=== PATIENT | male | born 1945 | race African-American/Black ===

== ENCOUNTER 2016-10-21 08:50 | Outpatient (CLI) | payer MEDICARE ==
[2016-10-21] MEDS ORDERED: Iopamidol 370 76% 100 ML VIAL ONE (10:46)
--- NOTE | 2016-10-21 13:04 | CT ---
CT THORAX WITH IV CONTRAST: Date: 10/21/16 HISTORY: History of lung cancer. Follow-up evaluation. COMPARISON: 07/07/16. FINDINGS: The previously described confluent nodular opacity within the anterior aspect of the right upper lob e has significantly decreased in size and no appreciable associated mass-like density is now present in this region and there are only linear densities present suggesting residual scarring. Just infer ior to this region, in the anterolateral aspect of the right upper lobe, there is a soft tissue dens ity present which previously measured 4.3 cm x 1.3 cm in greatest axial dimensions, and now measures approximately 3.2 cm x 1.1 cm. Just posterior to this region and also pleural based near the level of the minor fissure was a soft tissue nodule which is also no longer visualized and there is only m inimal ill-defined linear densities now present suggesting residual scarring in this region. There i s a pleural based nodular density just lateral to this region which has also resolved. There are several nodular densities within the right lower lobe, a majority of which have resolved. There has been interval decrease in size of the largest nodular soft tissue mass at the right lung b ase previously measuring 5.4 cm x 1.9 cm x 2.0 cm, and this now measures 5.4 cm x 1.6 cm x 1.0 cm. There has been interval decrease in the right hilar lymphadenopathy with the largest measured lymph node on the prior study measuring 3.5 cm x 2.7 cm on axial imaging and now measures 2.4 cm x 1.8 cm. Additional right hilar lymph nodes are also smaller in size. There is a stable calcified subcarinal lymph node. Pleural based densities along the medial aspect of the right mid lung zone at the right lung base ar e again seen and not significantly changed compared to the prior exam. There is a loculated fluid co llection seen at the right lung base measuring 3.9 cm x 2.2 cm. This was present on the prior study and previously measured 4.5 cm x 2.4 cm in axial dimensions. Pleural based densities/pleural thicken ing at the posterior and posterolateral aspect right lung base are again seen and unchanged. There is an ill-defined pulmonary nodule seen within the left upper lobe (image 23, series 3) also s een on the prior study. However, on the prior exam, this measured approximately 6.0 mm in maximal di mension. Difference in size could be related to slice selection. There is a tiny, approximately 4.0 mm, nodular density seen within the region of the lingula. This may have been present on the prior e xam. There is also a very tiny, subcentimeter, nodular density at the posterolateral left lung base measuring less than 4.0 mm, also stable when compared to the prior exam. Vascular calcifications are again seen in the coronary arteries, as well as involving the thoracic a elena. Visualized upper abdomen demonstrates multiple calcified granulomata seen throughout the liver and s pleen. Post cholecystectomy changes are again present. There is a right subclavian MediPort catheter again noted in place. No other interval change. IMPRESSION: Interval improvement in metastatic disease involving the chest as described above. POS: [facility]
== END 2016-10-21 08:51 | disposition home or self-care (01) ==
LOC: MADCT 08:50 → MERGE 08:50 → MADCT 08:51
PROVIDERS: ATTEND Internal Medicine Hematology & Oncology
DX: C34.81 Malignant neoplasm of overlapping sites of right bronchus and lung (principal); E53.9 Vitamin B deficiency, unspecified; R11.2 Nausea with vomiting, unspecified; C79.9 Secondary malignant neoplasm of unspecified site
CPT/HCPCS: 36415; 71260; 82565

== ENCOUNTER 2016-10-24 08:18 | Outpatient (CLI) | payer MEDICARE ==
[2016-10-24 10:53] LABS: ALT (SGPT) 24 U/L (8-55); AST (SGOT) 22 U/L (5-34); Albumin 3.8 g/dL (3.4-4.8); Alkaline Phosphatase 87 U/L (40-150); Bilirubin, Direct 0.2 mg/dL (0.1-0.3); Bilirubin, Total 0.3 mg/dL (0.2-1.2); Cardiac Risk 2.1 (Less than 4.5); Cholesterol 131 mg/dl (< 200 Desired); HDL Cholesterol 63 mg/dL (>60 Neg Risk); LDL Cholesterol, Calculated 54 mg/dL; Protein, Total 7.2 g/dL (5.8-8.1); Triglycerides 69 mg/dL (Less than 150)
== END 2016-10-24 08:19 | disposition home or self-care (01) ==
LOC: MADLAB 08:18
PROVIDERS: ATTEND Internal Medicine Cardiovascular Disease
DX: E78.2 Mixed hyperlipidemia (principal); E03.9 Hypothyroidism, unspecified
CPT/HCPCS: 36415; 80061; 80076

== ENCOUNTER 2016-11-16 13:36 | Emergency (ER) | payer MEDICARE ==
[2016-11-16] MEDS ORDERED: predniSONE 20 MG TAB ONE (13:57)
== END 2016-11-16 14:22 | disposition home or self-care (01) ==
LOC: MADERS 13:36
DX: L29.9 Pruritus, unspecified (principal); T45.1X5A Adverse effect of antineoplastic and immunosuppressive drugs, initial encounter; E11.9 Type 2 diabetes mellitus without complications; Z79.4 Long term (current) use of insulin; Z79.84 Long term (current) use of oral hypoglycemic drugs; Z79.899 Other long term (current) drug therapy
CPT/HCPCS: 99282; J7506

== ENCOUNTER 2017-01-20 11:58 | Outpatient (CLI) | payer MEDICARE ==
[~2017-01-20 11:58] MED LIST: Iopamidol 370 76% 100 ML VIAL ONE
--- NOTE | 2017-01-20 14:38 | CT ---
CHEST CT SCAN WITH IV CONTRAST: History: 72-year-old male with follow up lung cancer. Comparison: 10-21-16 FINDINGS: The previously noted pleural and parenchymal opacity in the posterior right lung base now measures 1 .3 x 3.3 cm in size showing decrease from the prior study. This probably represents a component of p leural thickening and loculated pleural fluid with some pleural nodularity. This combined appearance has decreased in size. Right hilar enlarged lymph node now measures 1.4 x 1.5 cm in size where it p reviously measured 1.8 x 2.4 cm. Stable linear and interstitial parenchymal changes in the right mariella g, including the right upper lobe and right lower lobe. Small stable nodular foci in both lungs are all stable. No evidence for acute pleural effusion or pericardial effusion. No evidence for new meta stasis or new adenopathy. Prominent old granuloma calcifications are noted in the liver and spleen a nd mediastinum. No evidence for liver metastasis. IMPRESSION: Decrease in the size of the right hilar lymph node. Decrease in the size of the right lower lobe pos terior inferior pleural and parenchymal process. Stable chronic linear and interstitial lung changes and stable small nodularity in both lungs. No new metastasis. POS: [facility]
== END 2017-01-20 11:59 | disposition home or self-care (01) ==
LOC: MADLAB 11:58
PROVIDERS: ATTEND Internal Medicine Hematology & Oncology
DX: C34.81 Malignant neoplasm of overlapping sites of right bronchus and lung (principal); E53.9 Vitamin B deficiency, unspecified; R11.2 Nausea with vomiting, unspecified; R91.8 Other nonspecific abnormal finding of lung field
CPT/HCPCS: 36415; 71260; 82565

== ENCOUNTER 2017-05-19 07:52 | Outpatient (CLI) | payer MEDICARE ==
[2017-05-19] MEDS ORDERED: Iopamidol 370 76% 100 ML VIAL ONE (09:24)
--- NOTE | 2017-05-19 11:35 | CT ---
CONTRAST ENHANCED CT IMAGES OF THE CHEST: Date: 05-19-17 Comparison: 01-20-17 FINDINGS: There is a right sided subclavian Mediport in place. Surgical sarah seen in the right upper hilar r egion compatible with a right upper lobectomy. There is some volume loss in the right hemithorax comp atible with post-surgical changes. Some right posterior pleural thickening is again seen. A small amount of fluid in the posterior aspec t of the right lung base appears to have decreased compared to the previous exam. Extensive splenic and hepatic granuloma again seen. The patient has had a previous cholecystectomy. A drenal glands are unremarkable. A small right hilar mass previously measuring 14 x 14 x 16 mm is again seen. This appears to have sli ghtly decreased in size, now measuring 11 x 13 x 16 mm. There are increasing mediastinal lymph nodes, two in the pretracheal region. The one on the right ant erior pretracheal region previously measured approximately 9 x 11 x 18 mm, now increasing in size abel suring 14 x 13 x 26 mm. A slightly smaller left pretracheal lymph node is also present. Previously, t his measured approximately 9 x 11 x 10 mm, now having increased in size measuring 14 x 13 x 14 mm. There is also a markedly enlarged subcarinal lymph node. Previously this measured approximately 12 x 15 x 15 mm, now having increased in size measuring 21 x 15 x 31 mm. IMPRESSION: 1. Right hilar lymph node is slightly smaller. 2. Three enlarging paratracheal and subcarinal lymph nodes, dimensions as above. POS: [facility]
== END 2017-05-19 07:53 | disposition home or self-care (01) ==
LOC: MADCT 07:52
PROVIDERS: ATTEND Internal Medicine Hematology & Oncology
DX: C34.90 Malignant neoplasm of unspecified part of unspecified bronchus or lung (principal); R59.0 Localized enlarged lymph nodes
CPT/HCPCS: 36415; 71260; 82565

== ENCOUNTER 2017-10-19 08:56 | Outpatient (CLI) | payer MEDICARE ==
[2017-10-19] MEDS ORDERED: Iopamidol 370 76% 100 ML VIAL ONE (09:33)
--- NOTE | 2017-10-19 12:14 | CT ---
CT CHEST WITH IV CONTRAST: HISTORY: Lung cancer. COMPARISON: 05/19/17. FINDINGS: Mediastinal lymphadenopathy has improved with right paratracheal lymph node measuring 8 mm and subcar inal lymph node measuring 12 mm. Right hilar lymphadenopathy is stable measuring about 12 x 13 x 15 mm. No axillary or left hilar lymphadenopathy is seen. Postop changes of right upper lobectomy are redemonstrated. There has been interval development of p atchy consolidation in the right lower lobe. Tiny right pleural effusion is stable. There is a new 8 mm parenchymal nodule in the posteromedial aspect of the left lower lobe. Right pleural calcificat ions are again seen. No pericardial left pleural effusion is identified. Calcified granulomas in the liver and spleen are again noted. The patient is post cholecystectomy. No osteolytic or osteoblastic lesions are seen. IMPRESSION: 1. Interval improvement in the mediastinal lymphadenopathy since 06/05/17. 2. Stable right hilar lymphadenopathy. 3. New right lower lobe 8 mm lung nodule. 4. Patchy consolidation in the right lower lobe. Differential diagnosis includes infection, neoplas m, or post-radiation change. POS: [facility]
== END 2017-10-19 08:57 | disposition home or self-care (01) ==
LOC: MADLAB 08:56
PROVIDERS: ATTEND Internal Medicine Hematology & Oncology
DX: C34.91 Malignant neoplasm of unspecified part of right bronchus or lung (principal); E53.9 Vitamin B deficiency, unspecified; R11.2 Nausea with vomiting, unspecified; R59.0 Localized enlarged lymph nodes; R91.1 Solitary pulmonary nodule
CPT/HCPCS: 36415; 71260; 82565

== ENCOUNTER 2017-12-16 07:35 | Outpatient (CLI) | payer MEDICARE ==
[2017-12-16 08:45] LABS: #Basophils 0.1 thou/uL (0.0-0.2); #Eosinphils 0.2 thou/uL (0.0-0.7); #Lymphocytes 1.1 thou/uL (1.20-3.40); #Monocytes 0.7 thou/uL (0.11-0.59); #Neutrophils 3.3 thou/uL (1.40-6.50); %Basophils 1.7 % (0.0-1.0); %Eosinophils 2.9 % (0.0-10.0); %Lymphocytes 19.8 % (21.0-51.0); %Monocytes 13.8 % (0.0-10.0); %Neutrophils 61.9 % (42.0-75.0); Hemoglobin 13.5 g/dL (14.0-18.0); Mean Corpuscular HGB CONC 31.4 g/dL (32.0-36.0); Mean Corpuscular Hemoglobin 26.2 pg (27.0-31.0); Mean Corpuscular Volume 83.5 fL (78.0-98.0); Mean Platelet Volume 7.9 fL (7.4-10.4); Platelet Count 207 thou/uL (130-400); RBC Distribution Width 14.2 % (11.5-14.5); Red Blood Cell (RBC) Count 5.15 mill/uL (4.70-6.10); White Blood Cell (WBC) Count 5.4 thou/uL (4.8-10.8)
[2017-12-16 08:59] LABS: ALT (SGPT) 10 U/L (8-55); AST (SGOT) 15 U/L (5-34); Albumin 4.1 g/dL (3.4-4.8); Alkaline Phosphatase 108 U/L (40-150); Anion Gap 14 mmol/L (10-20); BUN (Urea Nitrogen) 11 mg/dL (8.4-25.7); Bilirubin, Direct 0.2 mg/dL (0.1-0.3); Bilirubin, Total 0.4 mg/dL (0.2-1.2); Calc. Creatinine Clearance 0 mL/min (70-130); Calcium 9.7 mg/dL (7.8-10.44); Carbon Dioxide 26 mmol/L (23-31); Cardiac Risk 2.1 (Less than 4.5); Chloride 103 mmol/L (98-107); Cholesterol 160 mg/dl (< 200 Desired); Estimated GFR-MDRD 88; Glucose 107 mg/dL (83-110); HDL Cholesterol 78 mg/dL (>60 Neg Risk); LDL Cholesterol, Calculated 65 mg/dL; Potassium 4.2 mmol/L (3.5-5.1); Protein, Total 7.2 g/dL (5.8-8.1); Sodium 139 mmol/L (136-145); Triglycerides 84 mg/dL (Less than 150)
--- NOTE | 2017-12-16 09:43 | RAD ---
CHEST PA AND LATERAL: HISTORY: A 72-year-old male with a history of left-sided scapular pain without trauma, history of lung cancer. 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 FINDINGS: Right subclavian catheter and injection port. Volume loss on the right side with some scarring, part icularly in the right perihilar region and minimal pleural thickening, but overall stable. The left lung is somewhat hyperinflated. Heart size is normal. Biapical pleural thickening. IMPRESSION: Postoperative changes right chest with some volume loss and some scarring but overall stable. No ove rt acute process. If there is concern for bone metastasis as a source for pain, followup bone scan might give additiona l information. POS: [facility]
[2017-12-16 17:01] LABS: Hemoglobin A1c 6.7 % (4.0-6.0)
== END 2017-12-16 07:36 | disposition home or self-care (01) ==
LOC: MADLABBHPM 07:35
PROVIDERS: ATTEND Family Medicine
DX: M89.8X1 Other specified disorders of bone, shoulder (principal); E11.9 Type 2 diabetes mellitus without complications; E78.5 Hyperlipidemia, unspecified; Z98.890 Other specified postprocedural states
CPT/HCPCS: 36415; 71046; 80048; 80061; 80076; 83036; 85025

== ENCOUNTER 2018-02-19 08:17 | Outpatient (CLI) | payer MEDICARE ==
[2018-02-19] MEDS ORDERED: Iopamidol 370 76% 100 ML VIAL ONE (09:13)
--- NOTE | 2018-02-19 10:14 | CT ---
CHEST CT SCAN WITH IV CONTRAST: History: 73-year-old male with history of lung cancer. Comparison: 10-19-17 FINDINGS: Again noted is scarring and volume loss in the right upper lobe and superior segment of the right low er lobe. There is slightly more volume loss in the superior segment of the right lower lobe than when compared to the prior 10-19-17 study. Stable right hilar lymph nodes and mediastinal lymph nodes. The previously noted 0.8 cm diameter nodule in the right lower lobe has decreased in size and now measur es approximately 0.4 cm in size. Prominent splenic and liver old granuloma calcifications. Surgical c lips at the level of the GE junction. Stable left upper lobe nodular scarring. IMPRESSION: Some progressive volume loss in the superior segment of the right lower lobe. Stable right hilar and mediastinal lymph nodes and right sided volume loss. Stable nodular scarring in the left apex. No iliana dence for new metastasis. Previously noted pulmonary nodule in the right lower lobe has decreased in size. POS: [facility]
== END 2018-02-19 08:18 | disposition home or self-care (01) ==
LOC: MADLAB 08:17
PROVIDERS: ATTEND Internal Medicine Hematology & Oncology
DX: C34.81 Malignant neoplasm of overlapping sites of right bronchus and lung (principal); J98.4 Other disorders of lung; R91.1 Solitary pulmonary nodule
CPT/HCPCS: 36415; 71260; 82565

== ENCOUNTER 2018-05-22 08:49 | Emergency (ER) | payer MEDICARE ==
--- NOTE | 2018-05-22 10:05 | RAD ---
CHEST TWO VIEWS: History: Cough. Comparison: 12-16-17 FINDINGS: Right subclavian catheter and injection port. Post-surgical changes with scarring and volume loss in the right upper lobe and perihilar region. Left lung is clear. No new confluent pneumonia, overt myles a or pleural effusion. IMPRESSION: Scarring and volume loss and post-operative changes in the right perihilar and upper lobe. Stable juan earing left chest. Atherosclerosis of the aorta. No evidence for pneumonia. POS: [facility]
== END 2018-05-22 10:05 | disposition home or self-care (01) ==
LOC: MADERS 08:49
DX: J11.1 Influenza due to unidentified influenza virus with other respiratory manifestations (principal); E11.9 Type 2 diabetes mellitus without complications; E78.5 Hyperlipidemia, unspecified; I10 Essential (primary) hypertension; Z79.4 Long term (current) use of insulin; Z79.51 Long term (current) use of inhaled steroids; Z79.899 Other long term (current) drug therapy
CPT/HCPCS: 71046

== ENCOUNTER 2018-06-16 09:49 | Outpatient (CLI) | payer MEDICARE ==
[2018-06-16 10:30] LABS: Calc. Creatinine Clearance 0 mL/min (70-130); Estimated GFR-MDRD Greater than 90
--- NOTE | 2018-06-16 11:12 | CT ---
EXAM: CT Chest W Con PROVIDED CLINICAL HISTORY: Lung cancer COMPARISON: 02/19/2018 FINDINGS: The heart, pericardium and great vessels demonstrate a stable CT appearance. Postoperative and pleural parenchymal change involving the right hemithorax demonstrates no significa nt change with respect to the prior examination. Interval development of small noncalcified pulmonary nodules involving the left upper lobe. The largest of these measures about 6 mm adjacent to the richard r fissure laterally on image 15 of series 3. There is a stable noncalcified nodular density at the le ft lung apex. The airway appears unchanged. There is no evidence for pneumothorax. Emphysematous changes are again seen. The visualized portions of the upper abdomen demonstrate no acute abnormality. The osseous structures demonstrate no concerning osteoblastic or osteolytic lesions. IMPRESSION: 1. Stable postoperative and pleural parenchymal change involving the right hemithorax. 2. Development of multiple noncalcified pulmonary nodules involving the left upper lobe. Metastatic d isease should be considered. Follow up is recommended.
== END 2018-06-16 09:50 | disposition home or self-care (01) ==
LOC: MADLAB 09:49
PROVIDERS: ATTEND Internal Medicine Hematology & Oncology
DX: C34.90 Malignant neoplasm of unspecified part of unspecified bronchus or lung (principal); R91.8 Other nonspecific abnormal finding of lung field; Z98.890 Other specified postprocedural states
CPT/HCPCS: 36415; 71260; 82565; Q9967

== ENCOUNTER 2018-06-25 17:58 | Emergency (ER) | payer MEDICARE ==
[2018-06-25] MEDS ORDERED: Ondansetron PF 4 MG/2 ML Vial ONE (18:47)
[2018-06-25] MEDS ORDERED: Fentanyl 100 MCG/2 ML VIAL ONE ×2 (18:47→20:47)
[2018-06-25] MEDS ORDERED: Sodium Chloride 0.9% 1,000 ML ONE (18:48)
[2018-06-25 18:52] LABS: #Basophils 0.1 thou/uL (0.0-0.2); #Eosinphils 0.1 thou/uL (0.0-0.7); #Lymphocytes 1.2 thou/uL (1.20-3.40); #Monocytes 0.7 thou/uL (0.11-0.59); #Neutrophils 3.7 thou/uL (1.40-6.50); %Basophils 1.8 % (0.0-1.0); %Lymphocytes 21.3 % (21.0-51.0); %Monocytes 12.3 % (0.0-10.0); %Neutrophils 62.6 % (42.0-75.0); Hemoglobin 12.3 g/dL (14.0-18.0); Mean Corpuscular HGB CONC 31.3 g/dL (32.0-36.0); Mean Corpuscular Hemoglobin 26.1 pg (27.0-31.0); Mean Corpuscular Volume 83.5 fL (78.0-98.0); Platelet Count 228 thou/uL (130-400); RBC Distribution Width 15.8 % (11.5-14.5); Red Blood Cell (RBC) Count 4.69 mill/uL (4.70-6.10); White Blood Cell (WBC) Count 5.8 thou/uL (4.8-10.8)
[2018-06-25 19:07] LABS: ALT (SGPT) 8 U/L (8-55); AST (SGOT) 12 U/L (5-34); Albumin 3.9 g/dL (3.4-4.8); Alkaline Phosphatase 75 U/L (40-150); Anion Gap 16 mmol/L (10-20); BUN (Urea Nitrogen) 7 mg/dL (8.4-25.7); Bilirubin, Total 0.4 mg/dL (0.2-1.2); Calc. Creatinine Clearance 0 mL/min (70-130); Calcium 9.8 mg/dL (7.8-10.44); Carbon Dioxide 22 mmol/L (23-31); Chloride 106 mmol/L (98-107); Estimated GFR-MDRD Greater than 90; Globulin 3.1 g/dL (2.4-3.5); Glucose 159 mg/dL (83-110); Lipase 28 U/L (8-78); Potassium 4.2 mmol/L (3.5-5.1); Sodium 140 mmol/L (136-145)
--- NOTE | 2018-06-25 20:16 | CT ---
CT ABDOMEN AND PELVIS WITH IV CONTRAST 06/25/2018 CLINICAL INFORMATION: Abdominal pain and bloating COMPARISON: Noncontrast CT abdomen and pelvis on 11/25/[address] thorax on 06/16/2018. Technique: Multiple contiguous axial CT images are obtained through the abdomen and pelvis with IV contrast. Cor onal reformatted images are provided. FINDINGS: Lower Chest: Pleural and parenchymal changes are again seen at the right lung base. Left lung base is clear. Surgical clips are seen in the posterior lower mediastinum. Vessels: Vascular calcifications are seen in the abdominal aorta and iliac arteries. Abdomen: Portal vein:Patent Gallbladder: Postcholecystectomy changes are again seen Liver: Multiple calcified granulomata are identified. No focal hepatic lesion is appreciated. Pancreas: within normal limits. Spleen: Multiple calcified granulomata are again seen. Adrenals: within normal limits. Kidneys: A subcentimeter too small to characterize hypodense lesion is seen in the anterior aspect mi dportion left kidney. Kidneys otherwise have a normal CT appearance bilaterally. Peritoneum: No ascites or free air; no fluid collection. Bowel: Normal caliber.The appendix is not visualized on this examination, but no definite secondary s igns are seen to suggest appendicitis. Mesentery and Retroperitoneum: No enlarged mesenteric or retroperitoneal lymph nodes. Abdominal Wall: A fat-containing umbilical hernia is again seen. Pelvis: Reproductive Organs: No pelvic masses. Pelvis within normal limits. Bladder: within normal limits. Bones: within normal limits. IMPRESSION: No acute findings in the abdomen or pelvis.
== END 2018-06-25 21:09 | disposition home or self-care (01) ==
LOC: MADERS 17:58
DX: R10.9 Unspecified abdominal pain (principal); E11.9 Type 2 diabetes mellitus without complications; E78.5 Hyperlipidemia, unspecified; I10 Essential (primary) hypertension; Z79.899 Other long term (current) drug therapy; Z79.84 Long term (current) use of oral hypoglycemic drugs
CPT/HCPCS: 74177; 80053; 83605; 83690; 85025; 96361; 96372; 96374; 96375; 96376; J0500; J2405; J3010; J7050; Q9967

== ENCOUNTER 2018-09-13 08:22 | Outpatient (CLI) | payer MEDICARE ==
[2018-09-13 08:46] LABS: Calc. Creatinine Clearance 0 mL/min (70-130); Estimated GFR-MDRD Greater than 90
--- NOTE | 2018-09-13 11:59 | CT ---
CT CHEST WITH IV CONTRAST: Date: 09/13/18 PROVIDED CLINICAL HISTORY: Lung cancer. FINDINGS: Comparison made with study dated 06/16/18. Interval enlargement of several of the previously described pulmonary nodules involving the left uppe r lobe. The largest of these is again located at the margin of the major fissure laterally. This tony ures approximately 15 x 10 mm in greatest transverse dimensions on the current study as compared to a bout 6 mm in greatest dimension on the prior study. There is a new 3-4 mm noncalcified pulmonary nodu le involving the superior segment of the left lower lobe. Post treatment changes involving the right hemithorax appear not significantly changed with respect t o the prior study. There is no evidence for mediastinal or axillary lymph node enlargement. No eviden ce for left hilar lymph node enlargement. Soft tissue density in the region of the right hilum is sta ble. There is a stable nodular soft tissue density within the epicardial fat right of midline. This a ppears increased in size with respect to the 02/19/18 study. The airway appears unchanged. There is no evidence for left pleural fluid or pneumothorax. The visualized portions of the upper abdomen demonstrate a stable CT appearance. The osseous structures demonstrate no concerning lytic or blastic lesions. IMPRESSION: Interval enlargement of left upper lobe pulmonary nodules, the largest of which measures about 1.5 cm maximally, compatible with metastatic disease. POS: [facility]
[2018-09-13] MEDS ORDERED: Iopamidol 370 76% 100 ML VIAL ONE (13:19)
== END 2018-09-13 08:23 | disposition home or self-care (01) ==
LOC: MADLAB 08:22
PROVIDERS: ATTEND Internal Medicine Hematology & Oncology
DX: C34.81 Malignant neoplasm of overlapping sites of right bronchus and lung (principal); E53.9 Vitamin B deficiency, unspecified; R91.8 Other nonspecific abnormal finding of lung field
CPT/HCPCS: 36415; 71260; 82565; Q9967

== ENCOUNTER 2018-10-25 13:57 | Emergency (ER) | payer MEDICARE ==
[2018-10-25] MEDS ORDERED: Sodium Chloride 0.9% 1,000 ML ONE (14:26)
[2018-10-25 15:09] LABS: #Basophils 0.1 thou/uL (0.0-0.2); #Eosinphils 0.1 thou/uL (0.0-0.7); #Lymphocytes 1.6 thou/uL (1.20-3.40); #Monocytes 0.6 thou/uL (0.11-0.59); #Neutrophils 4.1 thou/uL (1.40-6.50); %Basophils 1.9 % (0.0-1.0); %Eosinophils 1.4 % (0.0-10.0); %Lymphocytes 24.4 % (21.0-51.0); %Monocytes 9.3 % (0.0-10.0); ALT (SGPT) 7 U/L (8-55); AST (SGOT) 12 U/L (5-34); Albumin 3.8 g/dL (3.4-4.8); Alkaline Phosphatase 62 U/L (40-150); Anion Gap 16 mmol/L (10-20); BUN (Urea Nitrogen) 11 mg/dL (8.4-25.7); Bilirubin, Total 0.4 mg/dL (0.2-1.2); Calc. Creatinine Clearance 0 mL/min (70-130); Calcium 9.9 mg/dL (7.8-10.44); Carbon Dioxide 22 mmol/L (23-31); Chloride 104 mmol/L (98-107); Estimated GFR-MDRD 89; Globulin 3.4 g/dL (2.4-3.5); Glucose 100 mg/dL (83-110); Hemoglobin 12.6 g/dL (14.0-18.0); Lipase 39 U/L (8-78); Mean Corpuscular HGB CONC 31.9 g/dL (32.0-36.0); Mean Corpuscular Hemoglobin 26.5 pg (27.0-31.0); Mean Corpuscular Volume 83.1 fL (78.0-98.0); Mean Platelet Volume 6.4 fL (7.4-10.4); Platelet Count 258 thou/uL (130-400); Potassium 3.9 mmol/L (3.5-5.1); Protein, Total 7.2 g/dL (5.8-8.1); Red Blood Cell (RBC) Count 4.73 mill/uL (4.70-6.10); Sodium 138 mmol/L (136-145); White Blood Cell (WBC) Count 6.5 thou/uL (4.8-10.8)
[2018-10-25] MEDS ORDERED: Fentanyl 100 MCG/2 ML VIAL ONE (16:06)
--- NOTE | 2018-10-25 16:09 | CT ---
EXAM: CT ABDOMEN AND PELVIS HISTORY: Right upper quadrant pain, x4 days COMPARISON: 06/25/2018 Procedure: Multiple contiguous axial images were obtained and a CT of the abdomen and pelvis with IV contrast. C oronal reformats were performed. FINDINGS: Lower Chest: Chronic changes in both lung bases. Vessels: Normal caliber aorta Heart: Normal heart size Abdomen: Portal vein:Patent Gallbladder: Surgically absent Liver: Extensive calcified granulomas. No enhancing masses. Pancreas: within normal limits. Spleen: Costophrenic granulomas. No enhancing masses. Adrenals: within normal limits. Kidneys: Symmetric enhancement. No obstructive uropathy. Peritoneum: No ascites or free air, no fluid collection. Bowel: Limited evaluation due to lack of IV contrast. No evidence of bowel obstruction. Appendix is d ifficult to appreciate. No obvious inflammation of the cecal apex. Scattered fecal material in a nondistended, nondilated colon. Mesentery and Retroperitoneum: No enlarged mesenteric or retroperitoneal lymph nodes. Abdominal Wall: Ventral abdominal wall hernia containing mesenteric fat. Pelvis: Reproductive Organs: No pelvic masses. Pelvis: within normal limits. Bladder: within normal limits. Bones: within normal limits. IMPRESSION: No evidence of acute intraabdominal\pelvic abnormality.
== END 2018-10-25 16:46 | disposition home or self-care (01) ==
LOC: MADERS 13:57
DX: R10.11 Right upper quadrant pain (principal); E11.9 Type 2 diabetes mellitus without complications; E78.5 Hyperlipidemia, unspecified; E78.00 Pure hypercholesterolemia, unspecified; I10 Essential (primary) hypertension; Z79.899 Other long term (current) drug therapy; Z79.51 Long term (current) use of inhaled steroids; Z79.84 Long term (current) use of oral hypoglycemic drugs
CPT/HCPCS: 74177; 80053; 83605; 83690; 84484; 85025; 93005; 94760; 96361; 96374; J3010; J7050; Q9967

== ENCOUNTER 2019-01-05 12:08 | Emergency (ER) | payer MEDICARE ==
[2019-01-05] MEDS ORDERED: Sodium Chloride 0.9% 500 ML ONE (12:34)
[2019-01-05 12:48] LABS: INR-International Normal Ratio 1.2; Prothrombin Time 15.5 SEC (12.0-14.7)
[2019-01-05 12:49] LABS: PTT 44.1 SEC (22.9-36.1)
[2019-01-05 12:56] LABS: ALT (SGPT) 15 U/L (8-55); AST (SGOT) 13 U/L (5-34); Albumin 3.5 g/dL (3.4-4.8); Alkaline Phosphatase 78 U/L (40-110); Anion Gap 17 mmol/L (10-20); BUN (Urea Nitrogen) 16 mg/dL (8.4-25.7); Bilirubin, Total 0.2 mg/dL (0.2-1.2); Calc. Creatinine Clearance 0 mL/min (70-130); Calcium 10.1 mg/dL (7.8-10.44); Carbon Dioxide 24 mmol/L (23-31); Chloride 102 mmol/L (98-107); Estimated GFR-MDRD 87; Globulin 3.9 g/dL (2.4-3.5); Glucose 187 mg/dL (83-110); Potassium 4.4 mmol/L (3.5-5.1); Protein, Total 7.4 g/dL (5.8-8.1); Sodium 139 mmol/L (136-145)
[2019-01-05 12:59] LABS: #Lymphocytes 0.7 thou/uL (1.20-3.40); #Monocytes 0.9 thou/uL (0.11-0.59); #Neutrophils 8.7 thou/uL (1.40-6.50); %Basophils 0.4 % (0.0-1.0); %Lymphocytes 6.4 % (21.0-51.0); %Monocytes 8.7 % (0.0-10.0); %Neutrophils 84.5 % (42.0-75.0); Anisocytosis SLIGHT = 6-15 cells (100X) (0-5/hpf); Hemoglobin 9.5 g/dL (14.0-18.0); MDiff Complete? YES; Mean Corpuscular HGB CONC 31.6 g/dL (32.0-36.0); Mean Corpuscular Hemoglobin 24.8 pg (27.0-31.0); Mean Corpuscular Volume 78.4 fL (78.0-98.0); Mean Platelet Volume 5.9 fL (7.4-10.4); Ovalocytes MODERATE= 6-15 cells (100X) (0-1/hpf); Platelet Count 445 thou/uL (130-400); Platelet Morphology Comment Appears Adequate; RBC Distribution Width 14.1 % (11.5-14.5); Red Blood Cell (RBC) Count 3.85 mill/uL (4.70-6.10); White Blood Cell (WBC) Count 10.3 thou/uL (4.8-10.8)
--- NOTE | 2019-01-05 13:34 | RAD ---
CHEST 1 VIEW: Date: 01/05/19 HISTORY: Lung cancer. Lower GI bleed. Chest pain. COMPARISON: 11/10/18. FINDINGS: Cardiac silhouette remains partially obscured by the elevated right hemidiaphragm. Extensive right siena ng atelectasis with spiculation at the right hilum is similar in appearance to the prior study. Left lung remains hyperinflated. No evidence of pneumothorax. Soft tissue density mass at the lateral aspe ct of the left lung apex correlates with abnormality seen on recent PET scan. IMPRESSION: Findings are stable compared to recent imaging studies. Left upper lobe mass is apparent. No new abno rmalities are demonstrated. POS: [facility]
== END 2019-01-05 14:31 | disposition short-term general hospital (02) ==
LOC: MADERS 12:08
DX: K92.2 Gastrointestinal hemorrhage, unspecified (principal); E11.9 Type 2 diabetes mellitus without complications; E78.5 Hyperlipidemia, unspecified; E78.00 Pure hypercholesterolemia, unspecified; I10 Essential (primary) hypertension; Z85.118 Personal history of other malignant neoplasm of bronchus and lung; Z79.51 Long term (current) use of inhaled steroids; Z79.84 Long term (current) use of oral hypoglycemic drugs; Z79.899 Other long term (current) drug therapy
CPT/HCPCS: 71045; 80053; 83880; 84484; 85025; 85610; 85730; 93005; 94760; 96360; J7050

== ENCOUNTER 2019-01-28 00:10 | Emergency (ER) | payer MEDICARE ==
[2019-01-28] MEDS ORDERED: Cephalexin 500 MG CAP ONE (01:06)
== END 2019-01-28 02:30 | disposition home or self-care (01) ==
LOC: MADERS 00:10
DX: N39.0 Urinary tract infection, site not specified (principal); E11.9 Type 2 diabetes mellitus without complications; E78.5 Hyperlipidemia, unspecified; E78.00 Pure hypercholesterolemia, unspecified; I10 Essential (primary) hypertension; Z87.891 Personal history of nicotine dependence
CPT/HCPCS: 51702; 87077; 87086; 87186

== ENCOUNTER 2019-01-29 10:50 | Emergency (ER) | payer MEDICARE | END 2019-01-29 11:41 | disposition home or self-care (01) | LOC: MADERS 10:50 | DX: T83.84XA Pain due to genitourinary prosthetic devices, implants and grafts, initial encounter (principal); N40.0 Benign prostatic hyperplasia without lower urinary tract symptoms; R33.8 Other retention of urine; E11.9 Type 2 diabetes mellitus without complications; E78.5 Hyperlipidemia, unspecified; E78.00 Pure hypercholesterolemia, unspecified; I10 Essential (primary) hypertension; Z87.891 Personal history of nicotine dependence; Z79.899 Other long term (current) drug therapy; Z79.51 Long term (current) use of inhaled steroids; Z79.84 Long term (current) use of oral hypoglycemic drugs | CPT/HCPCS: 99283 ==

== ENCOUNTER 2019-02-14 19:43 | Emergency (ER) | payer MEDICARE ==
[2019-02-14] MEDS ORDERED: Sodium Chloride Irrig Solution 250 ML ONE (20:23)
== END 2019-02-14 21:20 | disposition home or self-care (01) ==
LOC: MADERS 19:43
DX: K94.23 Gastrostomy malfunction (principal); E11.9 Type 2 diabetes mellitus without complications; E78.5 Hyperlipidemia, unspecified; E78.00 Pure hypercholesterolemia, unspecified; I10 Essential (primary) hypertension; Z87.891 Personal history of nicotine dependence
CPT/HCPCS: 99282

== ENCOUNTER 2019-02-26 08:40 | Emergency (ER) | payer MEDICARE ==
[2019-02-26] MEDS ORDERED: Sodium Chloride 0.9% 1,000 ML ONE (10:07)
[2019-02-26 10:26] LABS: Anisocytosis MODERATE=16-30 cells (100X) (0-5/hpf); Eosinophils 1 % (0-10); Hemoglobin 8.6 g/dL (14.0-18.0); Hypochromia SLIGHT = 6-15 cells (100X) (0-5/hpf); Lymphocytes 3 % (21-51); MDiff Complete? YES; Mean Corpuscular Hemoglobin 24.4 pg (27.0-31.0); Mean Corpuscular Volume 84.3 fL (78.0-98.0); Mean Platelet Volume 6.9 fL (7.4-10.4); Monocytes 4 % (0-10); Neutrophil 90 % (42-75); Platelet Count 524 thou/uL (130-400); Platelet Morphology Comment Appears Increased; Polychromasia SLIGHT = 2-3 cells (100X) (0-2/hpf); RBC Distribution Width 19.1 % (11.5-14.5); Reactive Lymphocytes 2 % (0-10); Red Blood Cell (RBC) Count 3.53 mill/uL (4.70-6.10); White Blood Cell (WBC) Count 8.2 thou/uL (4.8-10.8)
[2019-02-26 10:31] LABS: ALT (SGPT) 13 U/L (8-55); AST (SGOT) 18 U/L (5-34); Albumin 3.7 g/dL (3.4-4.8); Alkaline Phosphatase 83 U/L (40-110); Anion Gap 17 mmol/L (10-20); BUN (Urea Nitrogen) 17 mg/dL (8.4-25.7); Bilirubin, Total 0.5 mg/dL (0.2-1.2); Calc. Creatinine Clearance 0 mL/min (70-130); Calcium 9.3 mg/dL (7.8-10.44); Carbon Dioxide 23 mmol/L (23-31); Chloride 101 mmol/L (98-107); Estimated GFR-MDRD Greater than 90; Globulin 3.3 g/dL (2.4-3.5); Glucose 135 mg/dL (83-110); Magnesium 1.9 mg/dL (1.6-2.6); Potassium 4.7 mmol/L (3.5-5.1); Sodium 136 mmol/L (136-145)
== END 2019-02-26 11:04 | disposition home or self-care (01) ==
LOC: MADERS 08:40
DX: R33.9 Retention of urine, unspecified (principal); I95.1 Orthostatic hypotension; E86.9 Volume depletion, unspecified; D64.9 Anemia, unspecified; E11.9 Type 2 diabetes mellitus without complications; E78.5 Hyperlipidemia, unspecified; E78.00 Pure hypercholesterolemia, unspecified; I10 Essential (primary) hypertension; Z87.891 Personal history of nicotine dependence; Z46.6 Encounter for fitting and adjustment of urinary device; Z79.84 Long term (current) use of oral hypoglycemic drugs; Z79.82 Long term (current) use of aspirin; Z79.899 Other long term (current) drug therapy
CPT/HCPCS: 51702; 80053; 83735; 85025; J7050

== ENCOUNTER 2019-03-21 14:09 | Emergency (ER) | payer MEDICARE ==
[2019-03-21] MEDS ORDERED: Triple Antibiotic Oint 1 GM Packet ONE (15:32)
== END 2019-03-21 15:30 | disposition home or self-care (01) ==
LOC: MADERS 14:09
DX: K94.29 Other complications of gastrostomy (principal); E78.5 Hyperlipidemia, unspecified; E11.9 Type 2 diabetes mellitus without complications; I10 Essential (primary) hypertension; Z87.891 Personal history of nicotine dependence; Z79.84 Long term (current) use of oral hypoglycemic drugs; Z79.82 Long term (current) use of aspirin; Z79.899 Other long term (current) drug therapy
CPT/HCPCS: 99282

== ENCOUNTER 2019-03-27 10:22 | Emergency (ER) | payer MEDICARE ==
--- NOTE | 2019-03-27 12:39 | RAD ---
EXAM: XR Abdomen 1 View/KUB PROVIDED CLINICAL HISTORY: Gastrostomy tube placement COMPARISON: None FINDINGS: Contrast material administered to the patient's gastrostomy tube opacifies the stomach. The bowel gas pattern is nonspecific. Visualized lung bases appear clear. Known right hilar mass like opacity. IMPRESSION: As above.
== END 2019-03-27 12:59 | disposition home or self-care (01) ==
LOC: MADERS 10:22
DX: K94.23 Gastrostomy malfunction (principal); E11.9 Type 2 diabetes mellitus without complications; E78.5 Hyperlipidemia, unspecified; E78.00 Pure hypercholesterolemia, unspecified; I10 Essential (primary) hypertension; Z87.891 Personal history of nicotine dependence; Z79.82 Long term (current) use of aspirin; Z79.899 Other long term (current) drug therapy; Z79.84 Long term (current) use of oral hypoglycemic drugs
CPT/HCPCS: 43762; 74018; B4087

== ENCOUNTER 2019-05-09 04:23 | Inpatient (IN) | payer MEDICARE ==
[2019-05-09] MEDS ORDERED: Sodium Chloride 0.9% 1,000 ML ONE ×2 (05:07→07:21)
[2019-05-09] MEDS ORDERED: Cefepime 2 GM VIAL ONE (05:33)
[2019-05-09 05:48] LABS: ALT (SGPT) 14 U/L (8-55); AST (SGOT) 17 U/L (5-34); Albumin 3.3 g/dL (3.4-4.8); Alkaline Phosphatase 83 U/L (40-110); Anion Gap 16 mmol/L (10-20); BUN (Urea Nitrogen) 20 mg/dL (8.4-25.7); Bilirubin, Total 0.2 mg/dL (0.2-1.2); Calc. Creatinine Clearance 0 mL/min (70-130); Carbon Dioxide 27 mmol/L (23-31); Chloride 102 mmol/L (98-107); Estimated GFR-MDRD Greater than 90; Globulin 4.3 g/dL (2.4-3.5); Glucose 209 mg/dL (83-110); Potassium 4.6 mmol/L (3.5-5.1); Protein, Total 7.6 g/dL (5.8-8.1); Sodium 140 mmol/L (136-145)
[2019-05-09 05:53] LABS: Anisocytosis SLIGHT = 6-15 cells (100X) (0-5/hpf); Band 7 % (5-11); Elliptocytes SLIGHT = 2-5 cells (100X) (0-1/hpf); Eosinophils 1 % (0-10); Hemoglobin 9.2 g/dL (14.0-18.0); Hypochromia SLIGHT = 6-15 cells (100X) (0-5/hpf); Lymphocytes 10 % (21-51); MDiff Complete? YES; Mean Corpuscular HGB CONC 28.1 g/dL (32.0-36.0); Mean Corpuscular Hemoglobin 22.2 pg (27.0-31.0); Mean Platelet Volume 6.6 fL (7.4-10.4); Metamyelocyte 1 % (0-0); Monocytes 4 % (0-10); Myelocyte 1 % (0-0); Neutrophil 76 % (42-75); Platelet Clumps SLIGHT; Platelet Count 534 thou/uL (130-400); Polychromasia SLIGHT = 2-3 cells (100X) (0-2/hpf); RBC Distribution Width 17.9 % (11.5-14.5); Red Blood Cell (RBC) Count 4.05 mill/uL (4.70-6.10); White Blood Cell (WBC) Count 12.1 thou/uL (4.8-10.8)
[2019-05-09 05:59] LABS: Bilirubin Negative (Negative); Blood, Urine Trace (Negative); Clarity Clear (Clear); Glucose, Urine (Dipstick) Negative (Negative); Leukocyte Trace (Negative); Nitrite Negative (Negative); Protein, Urine (Dipstick) 30 mg/dL (Neg-Trace); Urobilinogen 0.2 mg/dL (Less than 2)
[2019-05-09 06:08] LABS: Bacteria/HPF Rare-Few HPF (None Seen); RBC/HPF 0-3 HPF (0-3); Squamous Epithelial 0-3 HPF (0-3); WBC/HPF 0-3 HPF (0-3)
[2019-05-09] MEDS ORDERED: Sodium Chloride 0.9% 100 ML BAG ONE (07:09)
--- NOTE | 2019-05-09 08:06 | RAD ---
CHEST 1 VIEW: Date: 05/09/2019 INDICATION: 74-year-old male with dyspnea. COMPARISON: Prior exam dated 04/18/2019. FINDINGS: Right chest wall port is stable appearing. Prominent pleural parenchymal opacity in the right upper l obe is similar appearing. Pulmonary nodularity of the left upper lobe is stable. No pleural effusion or pneumothorax is evident. No acute osseous abnormality is evident. IMPRESSION: Stable exam. POS: [facility]
[2019-05-09] MEDS ORDERED: Acetaminophen 325 MG TAB PER TUBE PRN (08:55)
[2019-05-09] MEDS ORDERED: Bacteriostatic Water 30 ML VIAL FS PRN (09:23)
[2019-05-09] MEDS ORDERED: methylPREDNISolone Sod Succ 40 MG VIAL IVP SCH (09:30)
[2019-05-09] MEDS ORDERED: Enoxaparin Sodium 40 MG/0.4 ML SYRINGE SC SCH (09:30)
[2019-05-09] MEDS ORDERED: Mometasone/Formoterol 200/5 60 PUFF INH SCH ×2 (09:45→19:00)
[2019-05-09] MEDS ORDERED: Enoxaparin Sodium 30 MG/0.3 ML SYRINGE SC SCH (10:45)
[2019-05-09] MEDS: methylPREDNISolone Sod Succ 40 MG VIAL IVP SCH (17:31)
[2019-05-09] MEDS: Cefepime 2 GM in Sodium Chloride 0.9% 100 ML IVPB SCH (17:37)
[2019-05-09] MEDS: Mirtazapine 15 MG TAB PER TUBE SCH (21:00)
[2019-05-09] MEDS: Mometasone/Formoterol 200/5 60 PUFF INH SCH (21:01)
[2019-05-10] MEDS: methylPREDNISolone Sod Succ 40 MG VIAL IVP SCH ×3 (01:29→17:00)
[2019-05-10 05:33] LABS: ALT (SGPT) 12 U/L (8-55); AST (SGOT) 13 U/L (5-34); Alkaline Phosphatase 72 U/L (40-110); Anion Gap 13 mmol/L (10-20); BUN (Urea Nitrogen) 20 mg/dL (8.4-25.7); Bilirubin, Total 0.2 mg/dL (0.2-1.2); Calc. Creatinine Clearance 67 mL/min (70-130); Calcium 9.8 mg/dL (7.8-10.44); Carbon Dioxide 25 mmol/L (23-31); Chloride 107 mmol/L (98-107); Estimated GFR-MDRD Greater than 90; Glucose 238 mg/dL (83-110); Potassium 4.4 mmol/L (3.5-5.1); Sodium 141 mmol/L (136-145)
[2019-05-10] MEDS: Cefepime 2 GM in Sodium Chloride 0.9% 100 ML IVPB SCH ×2 (05:40→16:59)
[2019-05-10 05:44] LABS: #Lymphocytes 0.4 thou/uL (1.20-3.40); #Monocytes 0.4 thou/uL (0.11-0.59); #Neutrophils 12.8 thou/uL (1.40-6.50); %Basophils 0.3 % (0.0-1.0); %Monocytes 2.9 % (0.0-10.0); %Neutrophils 93.8 % (42.0-75.0); Anisocytosis SLIGHT = 6-15 cells (100X) (0-5/hpf); Band 32 % (5-11); Burr Cells MODERATE= 6-15 cells (100X) (0-1/hpf); Hemoglobin 8.3 g/dL (14.0-18.0); Hypochromia MODERATE=16-30 cells (100X) (0-5/hpf); Lymphocytes 3 % (21-51); MDiff Complete? YES; Mean Corpuscular Hemoglobin 22.7 pg (27.0-31.0); Mean Corpuscular Volume 78.3 fL (78.0-98.0); Mean Platelet Volume 6.6 fL (7.4-10.4); Metamyelocyte 1 % (0-0); Monocytes 2 % (0-10); Neutrophil 62 % (42-75); Platelet Count 499 thou/uL (130-400); Polychromasia SLIGHT = 2-3 cells (100X) (0-2/hpf); Red Blood Cell (RBC) Count 3.68 mill/uL (4.70-6.10); White Blood Cell (WBC) Count 13.7 thou/uL (4.8-10.8)
--- NOTE | 2019-05-10 05:49 | HP ---
LOCATION: Acute Care [facility]. CHIEF COMPLAINT: Short of breath. HISTORY OF PRESENT ILLNESS: The patient is a 74-year-old -[place] male who has a history of metastatic adenocarcinoma of the lung for which he is on immunotherapy with Keytruda. He has had a previous right lower wedge resection in 2015. He had been hospitalized at [facility] from 04/19 to 04/25/2019 for aspiration pneumonia with severe dysphagia. He underwent a modified barium swallow which showed penetration and aspiration of thin liquids and mechanical soft diet. He was recommended to remain n.p.o. and to continue to use feeding through his PEG. He was discharged. He had presented with altered mental status. His CT and MRI of the brain were stable. The CT of the chest did show progression of the lung carcinoma. A chest x-ray showed pleural parenchymal opacity in the right upper lobe and pulmonary nodularity in the left upper lobe. He was treated with IV antibiotics , improved, and then discharged home with continuous O2, Augmentin for 10 days which he has completed, and tube feedings with Glucerna 1.5 kilocalories/mL 480 mL 3 times a day with water flush 120 mL before and after each feeding. His diltiazem is long-acting, could not be crushed and given by G-tube and he had been switched to Cardizem 30 mg t.i.d. The patient was brought to the emergency room on the morning of admission because of increasing cough and congestion and shortness of breath. He was very restless upon his arrival to the emergency room. He was tachycardic with a pulse of 120, respirations of over 20, O2 saturation in the low 80s on room air and tachypneic , had a productive cough in the emergency room. His H and H were 9.2 and 32.3. White cell count was 12,100 with 76% segs, 7% bands, 10% lymphocytes, and a platelet count of 534,000. Sodium was 140, potassium 4.6, BUN 20, creatinine 0.75, GFR greater than 90, glucose 209. Urine shows specific gravity 1.020, 0-3 rbc's, 0-3 wbc's. The patient had blood cultures obtained and was given a liter of fluid in the emergency room and was started on IV antibiotics with cefepime and Levaquin. Also was given neb treatments and O2. With this his pulse rate dropped and his respiratory rate dropped and his O2 saturation on 2 L improved to 96%. His chest x-ray showed prominent pleural-parenchymal opacity in the right upper lobe, pulmonary nodularity in the left upper lobe. This x-ray did not appear too much different from previous. It was recommended that the patient be admitted for probably a hospital-associated pneumonia and recommended that he be transferred to [facility]. He did not appear to be in any septic shock and his lactate was normal. His and the patient are very insistent that he would not go to [facility], they wanted him to stay here. He does have a DNR. The ER doctor called me and agreed to accept the patient here. The patient was seen soon after his admission and was able to review with his this history that was outlined above. He is resting easier now, but could not really give me much of a history. PAST MEDICAL HISTORY: Hospitalized at [facility] from 04/19 to 04/25/2019 for aspiration pneumonia, severe dysphagia with modified barium swallow showing penetration, aspiration of thin liquids, and mechanical soft textured diet. Recommended n.p.o. status and continuation of tube feeding. The patient has chronic hypoxic respiratory failure requiring supplemental O2. He has adenocarcinoma of the lung with history of a right lower lobe wedge resection in 2014. He has had metastatic disease and is on immunotherapy with Keytruda. He has a DNR status. The patient has hyperlipidemia, glaucoma, single-vessel coronary artery disease found on heart catheterization in 2014 and managed medically, PEG tube placed in February 2019, COPD, hypertension, marked weight loss, GERD for which he has undergone a Praveen fundoplication in 1999. PRESENT MEDICINES: 1. Acetaminophen 500 mg 2 per G-tube q.i.d. p.r.n. 2. DuoNebs q.i.d. and every 4 hours as needed. 3. Diltiazem 30 mg t.i.d. 4. Mirtazapine 30 mg per G-tube daily. 5. Advair 500/50 one inhalation b.i.d. in the emergency room. 6. Levofloxacin 500 mg IV daily was started. 7. Cefepime 2 g IV every 12 hours was started. ALLERGIES: CODEINE, MORPHINE, TRAMADOL. REVIEW OF SYSTEMS: The patient not able to go through review of systems well. Discussed with his . She said that she does not think he has had any recent fever. He has been steadily losing weight, but it seems to have stabilized from the recent increase in his feeding schedule. He has been very restless and just cannot seem to sit still. He has been very short of breath on the day of admission. He has had no chest pain. He has been spitting up a lot of thick sputum. ; he has had frequent urination but no dysuria. The patient is very weak and requires assistance with all his ADLs. HABITS: The patient used to smoke, but stopped years ago. Alcohol, none. FEEDING: Presently, the patient is receiving Glucerna 1.5 kilocalories/mL 480 mL 3 times a day per G-tube with water flush 120 mL before and after each feeding. SOCIAL HISTORY: The patient is , lives with his who is his primary caregiver. CODE STATUS: DNR. PHYSICAL EXAMINATION: GENERAL: Shows a 74-year-old white male who is extremely weak, has lost a lot of weight. He was not able to really answer much in the way of questions. He is wearing O2 at 4 L by nasal cannula. VITAL SIGNS: His temp is 99.4, pulse is down to 109 from admission of 124. His respirations are 28, O2 saturation 95% on 4 L, blood pressure 109/72. His weight is 121. HEAD: Normocephalic and atraumatic. EARS: TMs are clear. NOSE: Normal. MOUTH, THROAT: Normal. NECK: Carotids are equal and strong. Thyroid not enlarged. LUNGS: The patient has increased breath sounds over the right upper chest, anterior and posterior. The remainder of the chest is clear. There is some expiratory rhonchi over the upper right chest. The patient has a Port-A-Cath present. HEART: Rapid regular rhythm. ABDOMEN: Soft. No organomegaly. No areas of tenderness. EXTREMITIES: No edema. NEUROLOGIC: The patient has generalized weakness that is nonfocal. IMPRESSION: 1. Right upper lobe pneumonia;. a. Hospitalized at [facility] from 04/19 to 04/25/2019 with aspiration pneumonia. 2. Chronic obstructive pulmonary disease with acute exacerbation. 3. Chronic hypoxic respiratory failure. 4. Metastatic adenocarcinoma of the lung;. a. History of wedge resection of the right lower lobe, 2014. b. Complicated by metastatic disease. c. Currently on immunotherapy with Keytruda. 5. Severe dysphagia;. a. Modified barium swallow study, 04/24/2019, showed aspiration with thin liquids and penetration with mechanical soft texture diet. Recommended n.p.o. and continuation of only his G-tube feeding. 6. Coronary artery disease;. a. Single-vessel disease found on heart catheterization, 2014. b. Medically managed. 7. Weight loss. 8. Severe generalized weakness. 9. History of diabetes mellitus. 10. Code status, DNR. PLAN: The patient has been admitted to the hospital where he will be continued on the IV Levaquin and cefepime. I have also added steroids. We will continue the IV fluids. Continue supplemental O2 and nebulization treatment. We will continue his G-tube feeding, aspiration precaution, long-term prognosis with metastatic cancer of the lung very poor. See orders. Job ID: [id number] [facility]
[2019-05-10] MEDS ORDERED: Dextrose 5% in Water 1,000 ML IV PRN (08:28)
[2019-05-10] MEDS ORDERED: Dextrose 50% Abboject 50 ML SYRINGE SLOW IVP PRN (08:28)
[2019-05-10] MEDS ORDERED: Enoxaparin Sodium 40 MG/0.4 ML SYRINGE SC SCH ×2 (09:00)
[2019-05-10] MEDS: Enoxaparin Sodium 30 MG/0.3 ML SYRINGE SC SCH (09:09)
[2019-05-10] MEDS: Mometasone/Formoterol 200/5 60 PUFF INH SCH ×2 (09:12→21:47)
--- NOTE | 2019-05-10 09:26 | PRG ---
DATE OF SERVICE: 05/10/2019 SUBJECTIVE: The patient says he feels better today. His breathing is better. He is not having any chest pain. OBJECTIVE: GENERAL: The patient is sitting up in bed with his oxygen on. He is more talkative. He looks like he feels better. VITAL SIGNS: His temperature is 97.6; pulse 105; respirations 28, but have been down to 22; his O2 sat is 100% on 4 L; blood pressure 104/55. LUNGS: Clear except that there are increased breath sounds over the right upper chest, anterior and posterior, with expiratory rhonchi. HEART: Regular rate. ABDOMEN: G-tube site is clean. LABORATORY DATA: H and H of 8.3 and 28.8, white blood cell count 13,700, 62% segs, 32% bands, 3% lymphocytes, 1% metamyelocytes, and platelet count 499. Sodium 141, potassium 4.4, BUN 20, creatinine 0.74, glucose 238, and albumin 3. ASSESSMENT: 1. Right upper lobe pneumonia. a. Hospitalized at [facility] from 04/19/2019 to 04/25/2019 with aspiration pneumonia. 2. Chronic obstructive pulmonary disease with acute exacerbation. a. Improved as of 05/10/2019. 3. Chronic hypoxic respiratory failure. a. Requires continuous supplemental O2. 4. Metastatic adenocarcinoma of the lung. a. History of wedge resection in right lower lobe in 2014. b. Complicated by metastatic disease. c. Currently has been on immunotherapy with Keytruda. 5. Severe dysphagia. a. Modified barium swallow study on 04/24/2019 showed aspiration with thin liquids and penetration with mechanical soft texture diet. Recommended n.p.o. status and continuation of G-tube feeding. b. G-tube feeding going well as of 05/09. 6. Coronary artery disease. a. Single-vessel disease found on heart catheterization in 2014. b. Medically managed. 7. Weight loss. 8. Severe generalized weakness. 9. Diabetes mellitus, type 2. a. Elevation of blood sugars secondary to the steroids. 10. Code status, DNR. PLAN: The patient looks better today. We will continue his present care. We will add NovoLog before meals on a sliding scale. His CBC shows a marked leftward shift either from the infection and possibly cultures of the blood pending. Continue present management. Job ID: [id number] [facility]
[2019-05-10] MEDS: HumaLOG 300 UNITS/3 ML VIAL SC PRN ×3 (10:16→17:25)
[2019-05-10 12:19] LABS: Hemoglobin A1c 6.5 % (4.0-6.0)
[2019-05-10] MEDS: Mirtazapine 15 MG TAB PER TUBE SCH (21:49)
[2019-05-11] MEDS: methylPREDNISolone Sod Succ 40 MG VIAL IVP SCH (00:24)
[2019-05-11] MEDS: HumaLOG 300 UNITS/3 ML VIAL SC PRN ×3 (00:35→18:29)
[2019-05-11] MEDS: Cefepime 2 GM in Sodium Chloride 0.9% 100 ML IVPB SCH ×2 (04:52→17:19)
[2019-05-11 05:48] LABS: Band 10 % (5-11); Hemoglobin 8.1 g/dL (14.0-18.0); Hypochromia MODERATE=16-30 cells (100X) (0-5/hpf); Lymphocytes 4 % (21-51); MDiff Complete? YES; Mean Corpuscular HGB CONC 29.7 g/dL (32.0-36.0); Mean Corpuscular Hemoglobin 23.3 pg (27.0-31.0); Mean Corpuscular Volume 78.4 fL (78.0-98.0); Mean Platelet Volume 7.2 fL (7.4-10.4); Monocytes 2 % (0-10); Neutrophil 84 % (42-75); Nucleated RBC 1 % (0); Ovalocytes SLIGHT = 2-5 cells (100X) (0-1/hpf); Platelet Count 520 thou/uL (130-400); Platelet Morphology Comment Appears Increased; RBC Distribution Width 17.5 % (11.5-14.5); Red Blood Cell (RBC) Count 3.46 mill/uL (4.70-6.10); Schistocytes SLIGHT = 2-5 cells (100X) (0-1/hpf); Target Cells SLIGHT = 2-5 cells (100X) (0-1/hpf); White Blood Cell (WBC) Count 21.3 thou/uL (4.8-10.8)
[2019-05-11 05:51] LABS: Anion Gap 14 mmol/L (10-20); BUN (Urea Nitrogen) 29 mg/dL (8.4-25.7); Calc. Creatinine Clearance 73 mL/min (70-130); Carbon Dioxide 24 mmol/L (23-31); Chloride 109 mmol/L (98-107); Estimated GFR-MDRD Greater than 90; Glucose 176 mg/dL (83-110); Potassium 4.4 mmol/L (3.5-5.1); Sodium 143 mmol/L (136-145)
--- NOTE | 2019-05-11 09:38 | PRG ---
DATE OF SERVICE: 05/11/2019 SUBJECTIVE: The patient says he feels better today. Says his breathing is a lot better. He sat up for at least a couple of hours in a chair. The patient's , Jessica has requested initiation of PT and OT and speech therapy. These have all been ordered. OBJECTIVE: GENERAL: The patient is sitting up in bed. He is awake. He is not short of breath at rest. He looks more comfortable. He is more talkative this morning, talks in a very soft, low volume voice. VITAL SIGNS: Show a temperature of 97.2, pulse 94, respirations 26, O2 saturation 99% on 4 L, blood pressure 120/74. LUNGS: Right upper lobe over anterior and posterior aspects has increased breath sounds and expiratory rhonchi. Remainder of the chest is reasonably clear. HEART: Regular rate. EXTREMITIES: No edema. ABDOMEN: G-tube site is clean. LABORATORY DATA: H and H 8.1 and 27.1, white cell count 21,300 with 84% segs, 10% bands, platelet count of 520,000. This leukocytosis and leftward shift are probably from the effect of the steroids. Sodium 143, potassium 4.4, BUN 29, creatinine 0.69, glucose 176. The patient had a PET scan done on 03/10/2019, that showed new metabolic right paratracheal lymph nodes. Positive lymph nodes, right main bronchus. New hypermetabolic nodule in the left upper lobe along with the previous nodules and continued hypermetabolic activity in the right supraclavicular lymph nodes with increase in size from the previous exam. He also had undergone a CT scan of the chest on 04/20, which showed bilateral pulmonary nodules, several of which have increased in size with enlargement of a right supraclavicular and infraclavicular lymph node and mild increase of the left hilar adenopathy compatible with progression of metastatic disease. ASSESSMENT: 1. Right upper lobe pneumonia,. a. Hospitalized at [facility] from 04/19/2019 to 04/25/2019, with aspiration pneumonia. b. Improved. 2. Chronic obstructive pulmonary disease with acute exacerbation. a. Improved as of 05/10. 3. Chronic hypoxic respiratory failure. a. Requires continuous supplemental O2. b. Stable as of 05/10, but less short of breath. 4. Metastatic adenocarcinoma of the lung. a. History of wedge resection of the right lower lobe in 2014. b. Complicated by metastatic disease. c. On immunotherapy with Keytruda every 3 weeks. Due for repeat therapy on 05/22. d. PET scan on 03/10/2019, showed mixed response to therapy, still some new hypermetabolic nodules that have appeared. e. CT scan of the chest on 04/20, showed bilateral pulmonary nodules that increased in size and increase in left hilar adenopathy, all compatible with progression of disease. 5. Severe dysphagia. a. Modified barium swallow study on 04/24/2019, showed aspiration with thin liquids and penetration with mechanical soft texture diet. Speech therapist then recommended n.p.o. status and continuation of G-tube feeding. b. G-tube feeding going well as of 05/10. 6. Coronary artery disease. a. Single-vessel disease found on heart catheterization in 2014. b. Medically managed. 7. Weight loss. 8. Severe generalized weakness. 9. Diabetes mellitus, type 2. a. Elevation of blood sugar secondary to the IV steroids. 10. Code status, DNR. PLAN: Continue the IV antibiotics. Blood cultures have come back negative x2 to-date. Continue G-tube feeding. We will switch the patient from IV methylprednisolone to prednisone by G-tube. PT and OT will work with the patient and see if any improvement in his general strength can be achieved. Speech Therapy will look in per request of family and see if anything more can be offered. The patient is due for repeat on his immunomodulatory therapy on 05/22. Job ID: [id number] [facility]
[2019-05-11] MEDS ORDERED: predniSONE 20 MG TAB PER TUBE SCH ×2 (09:45)
[2019-05-11] MEDS: Mometasone/Formoterol 200/5 60 PUFF INH SCH ×2 (09:52→20:20)
[2019-05-11] MEDS: Enoxaparin Sodium 30 MG/0.3 ML SYRINGE SC SCH (09:53)
[2019-05-11] MEDS: Mirtazapine 15 MG TAB PER TUBE SCH (20:27)
[2019-05-12] MEDS: Cefepime 2 GM in Sodium Chloride 0.9% 100 ML IVPB SCH ×2 (04:07→17:35)
[2019-05-12] MEDS: HumaLOG 300 UNITS/3 ML VIAL SC PRN ×2 (05:51→18:15)
[2019-05-12 06:04] LABS: Anion Gap 14 mmol/L (10-20); BUN (Urea Nitrogen) 30 mg/dL (8.4-25.7); Calc. Creatinine Clearance 76 mL/min (70-130); Carbon Dioxide 25 mmol/L (23-31); Chloride 109 mmol/L (98-107); Estimated GFR-MDRD Greater than 90; Glucose 194 mg/dL (83-110); Potassium 4.6 mmol/L (3.5-5.1); Sodium 143 mmol/L (136-145)
[2019-05-12 06:05] LABS: #Lymphocytes 0.4 thou/uL (1.20-3.40); #Monocytes 0.8 thou/uL (0.11-0.59); #Neutrophils 19.3 thou/uL (1.40-6.50); %Basophils 0.2 % (0.0-1.0); %Monocytes 4.1 % (0.0-10.0); %Neutrophils 93.7 % (42.0-75.0); Anisocytosis MODERATE=16-30 cells (100X) (0-5/hpf); Hemoglobin 8.6 g/dL (14.0-18.0); Hypochromia MODERATE=16-30 cells (100X) (0-5/hpf); MDiff Complete? YES; Mean Corpuscular HGB CONC 28.9 g/dL (32.0-36.0); Mean Corpuscular Hemoglobin 22.7 pg (27.0-31.0); Mean Corpuscular Volume 78.7 fL (78.0-98.0); Mean Platelet Volume 7.3 fL (7.4-10.4); Microcytosis SLIGHT = 6-15 cells (100X) (0-5/hpf); Platelet Count 532 thou/uL (130-400); Red Blood Cell (RBC) Count 3.81 mill/uL (4.70-6.10); Target Cells SLIGHT = 2-5 cells (100X) (0-1/hpf); Tear Drops SLIGHT = 2-5 cells (100X) (0-1/hpf); White Blood Cell (WBC) Count 20.6 thou/uL (4.8-10.8)
[2019-05-12] MEDS: Mometasone/Formoterol 200/5 60 PUFF INH SCH ×2 (09:33→20:11)
[2019-05-12] MEDS: Enoxaparin Sodium 30 MG/0.3 ML SYRINGE SC SCH (09:33)
[2019-05-12] MEDS: predniSONE 20 MG TAB PER TUBE SCH (09:33)
[2019-05-12 10:58] VITALS: BMI 19.3
--- NOTE | 2019-05-12 11:39 | PRG ---
DATE OF SERVICE: 05/12/2019 SUBJECTIVE: Patient is feeling better. He had a good night. This morning, he was able to walk over to physical therapy with a walker, but was too tired to walk back, was taken back in a wheelchair. He is breathing much better. Speech Therapy saw him yesterday and tried him on some pudding which caused coughing and also just some thin liquids that created the coughing from aspiration. I have not seen note yet from speech therapist and suspect the patient is aspirating even with the pudding and liquids, will need to continue the G-tube feeding. OBJECTIVE: GENERAL: The patient is sitting up in a wheelchair, looks much better. VITAL SIGNS: Temperature of 96.7, pulse 104, respirations 20, O2 saturation 99 % on 3-1/2 L, blood pressure 112/62. LUNGS: Clear except for some increased breath sounds over the right upper anterior and posterior chest. The rhonchi and coarseness of the breath sounds has resolved. There was no wheezing. HEART: Regular rate. EXTREMITIES: No edema. LABORATORY DATA: H and H are 8.6 and 29.9, white cell count 20,600 with 94% segs, 2% lymphocytes, and a platelet count of 532,000. Sodium 143, potassium 4.3, BUN 30, creatinine 0.6. FBS 194. Hemoglobin A1c on 05/09 was 6.5. Blood cultures have no growth x2 at 48 hours. ASSESSMENT: 1. Right upper lobe pneumonia. a. Hospitalized at [facility] from 04/19/19 until 04/25/19 with aspiration pneumonia. b. Improved. 2. Chronic obstructive pulmonary disease with acute exacerbation, improved with no wheezing or rhonchi as of 05/11. 3. Chronic hypoxic respiratory failure. a. Requires continuous supplemental O2. b. Stable as of 05/11. 4. Metastatic adenocarcinoma of the lung. a. History of wedge resection of the right lower lobe in 2015. b. Complicated by metastatic disease. c. On immunotherapy with Keytruda every 3 weeks,due for repeat therapy on . d. PET scan on 03/10/19 showed mixed response to therapy. Still has some new hypermetabolic nodules that have appeared. e. CT scan of the chest on 04/20/19 showed bilateral pulmonary nodules that have increased in size and left hilar adenopathy that has increased in size, thought compatible with progression of disease. 5. Severe dysphagia. a. Modified barium swallow study on 04/24 showed aspiration with thin liquids and penetration with mechanical soft diet. Speech therapy recommended n.p.o. status and continuation of G-tube feeding. b. G-tube feeding going well as of 05/11. c. Speech therapist has re-evaluated the patient on 05/10, note pending. 6. Coronary artery disease. a. Single-vessel disease on heart catheterization in 2014. b. Medically managed. 7. Weight loss. a. Severe generalized weakness. b. Improved as of 05/11. 8. Diabetes mellitus type 2. a. Hemoglobin A1c 6.5 on 05/09. b. Recent increase in glucose secondary to the steroids. 9. Code status DNR. PLAN: Continue G-tube feeding. Continue PT and OT and Speech Therapy. Tomorrow anticipate moving to extended care for purpose of completion of a 7-day course of the IV antibiotics and also for continued PT and OT. Job ID: [id number] [facility]
[2019-05-12] MEDS: Mirtazapine 15 MG TAB PER TUBE SCH (20:13)
[2019-05-13 02:58] LABS: Bacteria/HPF None Seen HPF (None Seen); Bilirubin Negative (Negative); Blood, Urine Negative (Negative); Clarity Clear (Clear); Glucose, Urine (Dipstick) Negative (Negative); Leukocyte Negative (Negative); Nitrite Negative (Negative); Protein, Urine (Dipstick) Negative (Neg-Trace); RBC/HPF None Seen HPF (0-3); Squamous Epithelial None Seen HPF (0-3); Urobilinogen 0.2 mg/dL (Less than 2); WBC/HPF None Seen HPF (0-3)
[2019-05-13] MEDS: Cefepime 2 GM in Sodium Chloride 0.9% 100 ML IVPB SCH ×2 (04:01→17:47)
[2019-05-13] MEDS: predniSONE 20 MG TAB PER TUBE SCH (08:27)
[2019-05-13] MEDS: Enoxaparin Sodium 30 MG/0.3 ML SYRINGE SC SCH (08:29)
[2019-05-13] MEDS: Mometasone/Formoterol 200/5 60 PUFF INH SCH ×2 (08:29→20:23)
--- NOTE | 2019-05-13 12:29 | PRG ---
DATE OF SERVICE: 05/13/2019 SUBJECTIVE: The patient said he feels a little better. He was a little short of breath this morning, did not feel like participating PT. Yesterday, had a little leakage from the gastrostomy site, but after seating the G-tube better and pulling the button down against the abdominal wall, this held. This had to be re-tight a little this morning. Last night, he was getting up and feeling the urge to void every 2 minutes. Bladder scan was done and showed a 750 mL of fluid in the bladder. Catheter was passed and urine was clear. He immediately went to sleep. This morning, he says he feels a lot better. He has a history of BPH. He had been on Flomax, but this would not crush and go down the G-tube. He was started on terazosin 1 mg, but has not received this in the hospital. OBJECTIVE: General: The patient looks comfortable, is sitting up in bed and appears in no distress. VITAL SIGNS: Temperature 98.6; pulse 111, earlier it was 86; respirations 28; O2 sat 94% on 2 L; blood pressure 113/63. CHEST: The patient has a hard nodule in the right medial aspect of the supraclavicular fossa from his lung cancer. LUNGS: Clear except for increased breath sounds over the right upper anterior and posterior chest. HEART: Regular rate. ABDOMEN: Soft and nontender. G-tube site, there is small amount of leakage of formula around the G-tube site. G-tube was reset and button pushed down against the abdominal wall. EXTREMITIES: No edema. The patient has a Gamble catheter and the urine is clear. LABORATORY DATA: His FBS this morning was 136. His urinalysis from the cath urine shows specific gravity of 1.020, negative nitrite, no wbc's nor rbc's seen. ASSESSMENT: 1. Right upper lobe pneumonia. a. Hospitalized at [facility] from 04/19/2019 until 04/25/2019 with aspiration pneumonia. b. Improved, receiving a 7-day course of IV antibiotics. 2. Chronic obstructive pulmonary disease with acute exacerbation. a. Improved, no wheezing, on oral steroids and IV antibiotics as of 05/12. 3. Chronic hypoxic respiratory failure. a. Requires continuous supplemental O2. b. Stable as of 05/12. 4. Metastatic adenocarcinoma of the lung. a. History of wedge resection of the right lower lobe in 2014. b. Complicated by metastatic disease with palpable masses in the right supraclavicular fossa. c. On immunotherapy with Keytruda every 3 weeks, due for repeat therapy on 05/22. d. PET scan on 03/28/2019 showed mixed response to therapy. Still some new hypermetabolic nodules that have appeared. e. CT scan of the chest on 04/20 showed bilateral pulmonary nodules, that have increased in size, and left hilar adenopathy that increased in size. Also evidence of supra and infraclavicular nodules, all compatible with progression of disease. 5. Severe dysphagia. a. Modified barium swallow study on 04/24/2019 showed aspiration with thin liquids and penetration with mechanical soft diet. Speech Therapy is recommending a p.o. status and continuation of G-tube feeding. b. G-tube feeding is going well as of 05/12. c. Speech therapist has reevaluated the patient, seen on 05/10. 5. Coronary artery disease. a. Single-vessel disease on heart catheterization in 2014. b. Medically managed. 6. Severe generalized weakness. a. Requires assistance with all his ADLs. b. Requires enteral feeding. 7. Diabetes type 2. a. Hemoglobin A1c 6.5 b.. Recent increasing glucose secondary to the steroids, has markedly improved as of 05/12 since switch to oral prednisone. 8. Urinary retention. a. Required placement of a Gamble catheter on the morning of 04/14/2019 with a 750 mL residual. b. Etiology probably secondary to his prostatic enlargement. PLAN: We will continue his IV antibiotics for full 7 days. These will complete on 05/14. Continue the G-tube feeding. Continue the Gamble catheter. Later might try a voiding trial, but first restart his terazosin. Hospital is contacting his insurance for approval for movement to extended care for purpose of continued IV antibiotics. Continue G-tube feeding and physical therapy and OT. Job ID: [id number] [facility]
[2019-05-13 12:30] LABS: ALT (SGPT) 21 U/L (8-55); AST (SGOT) 16 U/L (5-34); Albumin 2.9 g/dL (3.4-4.8); Alkaline Phosphatase 75 U/L (40-110); Anion Gap 13 mmol/L (10-20); BUN (Urea Nitrogen) 25 mg/dL (8.4-25.7); Bilirubin, Total Less than 0.2 mg/dL (0.2-1.2); Calc. Creatinine Clearance 74 mL/min (70-130); Calcium 10.4 mg/dL (7.8-10.44); Carbon Dioxide 28 mmol/L (23-31); Chloride 107 mmol/L (98-107); Estimated GFR-MDRD Greater than 90; Globulin 3.7 g/dL (2.4-3.5); Glucose 174 mg/dL (83-110); Potassium 4.5 mmol/L (3.5-5.1); Protein, Total 6.6 g/dL (5.8-8.1); Sodium 143 mmol/L (136-145)
[2019-05-13] MEDS: HumaLOG 300 UNITS/3 ML VIAL SC PRN ×2 (13:06→18:11)
[2019-05-13] MEDS: Mirtazapine 15 MG TAB PER TUBE SCH (20:17)
[2019-05-14] MEDS ORDERED: Guaifenesin DM 100-10/5 ML UDCUP PER TUBE PRN (00:28)
[2019-05-14] MEDS: Cefepime 2 GM in Sodium Chloride 0.9% 100 ML IVPB SCH ×2 (04:45→17:36)
[2019-05-14 06:58] LABS: #Basophils 0.1 thou/uL (0.0-0.2); #Lymphocytes 0.9 thou/uL (1.20-3.40); #Monocytes 1.8 thou/uL (0.11-0.59); #Neutrophils 12.9 thou/uL (1.40-6.50); %Basophils 0.5 % (0.0-1.0); %Eosinophils 0.1 % (0.0-10.0); %Lymphocytes 5.6 % (21.0-51.0); %Monocytes 11.2 % (0.0-10.0); %Neutrophils 82.5 % (42.0-75.0); Anisocytosis SLIGHT = 6-15 cells (100X) (0-5/hpf); Hemoglobin 9.2 g/dL (14.0-18.0); Hypochromia MODERATE=16-30 cells (100X) (0-5/hpf); MDiff Complete? YES; Mean Corpuscular HGB CONC 29.3 g/dL (32.0-36.0); Mean Corpuscular Hemoglobin 22.4 pg (27.0-31.0); Mean Corpuscular Volume 76.5 fL (78.0-98.0); Mean Platelet Volume 7.2 fL (7.4-10.4); Microcytosis SLIGHT = 6-15 cells (100X) (0-5/hpf); Platelet Count 565 thou/uL (130-400); Platelet Morphology Comment Appears Increased; RBC Distribution Width 17.6 % (11.5-14.5); Red Blood Cell (RBC) Count 4.12 mill/uL (4.70-6.10); Stomatocytes SLIGHT = 2-5 cells (100X) (0-1/hpf); Tear Drops SLIGHT = 2-5 cells (100X) (0-1/hpf); White Blood Cell (WBC) Count 15.6 thou/uL (4.8-10.8)
[2019-05-14] MEDS: Enoxaparin Sodium 30 MG/0.3 ML SYRINGE SC SCH (09:42)
[2019-05-14] MEDS: predniSONE 20 MG TAB PER TUBE SCH (09:42)
[2019-05-14] MEDS: Mometasone/Formoterol 200/5 60 PUFF INH SCH ×2 (09:44→20:03)
[2019-05-14] MEDS: HumaLOG 300 UNITS/3 ML VIAL SC PRN ×2 (12:28→18:55)
[2019-05-14] MEDS ORDERED: Sodium Chloride 0.9% 250 ML IV SCH (16:15)
[2019-05-14] MEDS: Sodium Chloride 0.9% 1,000 ML IV SCH (17:36)
[2019-05-14] MEDS: Lorazepam 1 MG TAB PER TUBE PRN (17:37)
--- NOTE | 2019-05-14 17:57 | PRG ---
DATE OF SERVICE: 05/14/2019 SUBJECTIVE: The patient says he feels better today. His Jessica walked him a little bit today, but he gets tired and he gets winded very easy with any activity. His G-tube feedings have been going well. Yesterday, with a bowel movement, he had just a tiny amount of bright blood present. The stools did not have any blood nor were they black. Apparently, this was just a small amount of blood from outlet bleeding. Suspect hemorrhoids. The patient not in any condition to pursue any further workup since then. His said he had just a speck of blood today. OBJECTIVE: GENERAL: The patient is sitting up in a bedside chair. He is a little more talkative. He looks better. VITAL SIGNS: Show a temperature of 97.3, pulse 85, respirations 18, O2 saturation 100% on 2 L, blood pressure 122/66. LUNGS: Clear except the right upper lobe anterior and posterior has decreased breath sounds. HEART: Regular rate. EXTREMITIES: No edema. LABORATORY DATA: H and H of 9.2 and 31.5, white cell count down to 15,600, with 83% segs, 6% lymphocytes, and platelet count of 565,000. Sodium 143; potassium 4.5 ; BUN 25; creatinine 0.68; glucose 174, this morning glucose 153. Urine culture from 05/12 has no growth. ASSESSMENT: 1. Right upper lobe pneumonia. a. Hospitalized at [facility] from 04/19 until 04/25/2019 with aspiration pneumonia. b. Improved on his 7 day course of IV antibiotics. 2. Chronic obstructive pulmonary disease with acute exacerbation. a. Improved. No wheezing. On oral steroids and IV antibiotics as of 05/13. 3. Chronic hypoxic respiratory failure. a. Requires continuous supplemental O2. b. Stable as of 05/13. 4. Metastatic adenocarcinoma of the lung. a. History of wedge resection of right lower lobe in 2015. b. Complicated by metastatic disease with palpable mass in the right supraclavicular fossa. c. On immunotherapy with Keytruda every 3 weeks. Next therapy due on 05/22. d. PET scan on 03/28/2019 showed mixed response to therapy. Still showed new metabolic nodules in the lungs. e. CT scan of the chest on 04/20/2019 showed bilateral pulmonary nodules that have increased in size. Left hilar adenopathy that increased in size. The supra and infraclavicular nodules on the right all compatible with progression of disease. 5. Severe dysphagia. a. Modified barium swallow study on 04/24/2019 showed aspiration with thin liquids and penetration with mechanical soft diet. Speech therapy recommended continue n.p.o. status and G-tube feeding. b. G-tube feeding going well as of 05/13. 6. Coronary artery disease. a. Single-vessel disease on heart catheterization in 2015 be medically managed. 7. Severe generalized weakness. a. Requires assistance with all his ADLs. b. Requires enteral feeding. c. Activities are limited by his exertional dyspnea. 8. Diabetes type 2. a. Hemoglobin A1c 6.5. b. Recent increased glucose secondary to the steroids that are improving as of 05/13. 9. Urinary retention. a. Required placement of Gamble catheter on the morning of 04/14/2019 with 750 mL residual. The etiology secondary to prostatic enlargement, none. Small amount of hematochezia, bright red probably from outlet bleeding probable hemorrhoids. PLAN: The patient will complete his 7 days of IV antibiotics tomorrow. We will continue to observe the patient for the tiny amount of bright red bleeding with bowel movement that is probable hemorrhoidal. Activities within his tolerance. We will continue PT. I spoke with his insurance carrier who at this time did not want to switch him to extended care. We will re-approach on 05/16/2019, and have Physical Therapy re-evaluate on that same day that is 05/16/2019. Job ID: [id number] MTDD
[2019-05-14] MEDS: Mirtazapine 15 MG TAB PER TUBE SCH (20:02)
[2019-05-14] MEDS ORDERED: hydrOXYzine 25 MG TAB PER TUBE PRN (22:15)
[2019-05-14] MEDS ORDERED: risperiDONE 0.5 MG TAB PER TUBE SCH (22:15)
[2019-05-14] MEDS ORDERED: hydrOXYzine 25 MG TAB PER TUBE SCH (22:30)
[2019-05-15] MEDS: Sodium Chloride 0.9% 1,000 ML IV SCH (01:30)
[2019-05-15] MEDS: Lorazepam 1 MG TAB PER TUBE PRN (01:43)
[2019-05-15] MEDS: Cefepime 2 GM in Sodium Chloride 0.9% 100 ML IVPB SCH (04:12)
[2019-05-15] MEDS ORDERED: risperiDONE 0.5 MG TAB PER TUBE SCH ×2 (06:00→08:15)
[2019-05-15 06:20] LABS: #Basophils 0.1 thou/uL (0.0-0.2); #Lymphocytes 0.9 thou/uL (1.20-3.40); #Monocytes 1.5 thou/uL (0.11-0.59); #Neutrophils 11.9 thou/uL (1.40-6.50); %Basophils 0.9 % (0.0-1.0); %Eosinophils 0.2 % (0.0-10.0); %Lymphocytes 6.4 % (21.0-51.0); %Monocytes 10.5 % (0.0-10.0); Hemoglobin 9.3 g/dL (14.0-18.0); Mean Corpuscular HGB CONC 29.2 g/dL (32.0-36.0); Mean Corpuscular Hemoglobin 22.9 pg (27.0-31.0); Mean Corpuscular Volume 78.4 fL (78.0-98.0); Mean Platelet Volume 7.4 fL (7.4-10.4); Platelet Count 491 thou/uL (130-400); RBC Distribution Width 18.6 % (11.5-14.5); Red Blood Cell (RBC) Count 4.06 mill/uL (4.70-6.10); White Blood Cell (WBC) Count 14.5 thou/uL (4.8-10.8)
[2019-05-15 06:21] LABS: Anisocytosis SLIGHT = 6-15 cells (100X) (0-5/hpf); Hypochromia MODERATE=16-30 cells (100X) (0-5/hpf); MDiff Complete? YES; Platelet Morphology Comment Appears Increased; Schistocytes SLIGHT = 2-5 cells (100X) (0-1/hpf); Stomatocytes SLIGHT = 2-5 cells (100X) (0-1/hpf)
[2019-05-15] MEDS: HumaLOG 300 UNITS/3 ML VIAL SC PRN (06:21)
[2019-05-15 06:23] LABS: Anion Gap 15 mmol/L (10-20); BUN (Urea Nitrogen) 20 mg/dL (8.4-25.7); Calc. Creatinine Clearance 79 mL/min (70-130); Carbon Dioxide 25 mmol/L (23-31); Chloride 104 mmol/L (98-107); Estimated GFR-MDRD Greater than 90; Glucose 124 mg/dL (83-110); Potassium 4.2 mmol/L (3.5-5.1); Sodium 140 mmol/L (136-145)
[2019-05-15] MEDS ORDERED: Lorazepam 2 MG/ML VIAL SLOW IVP SCH (08:00)
[2019-05-15] MEDS: predniSONE 20 MG TAB PER TUBE SCH (09:09)
--- NOTE | 2019-05-15 11:59 | PRG ---
DATE OF SERVICE: 05/15/2019 SUBJECTIVE: The patient's condition has been one of steady decline. His blood pressure yesterday had dropped low, but had responded to a bolus of saline and he has continued to receive IV fluids. He has been very restless and confused, and he been given p.o. lorazepam without much help. He was started on risperidone, which helped for a little while and hydroxyzine. He keeps telling his he is ready to go home. OBJECTIVE: GENERAL: This morning, he is very restless. He did not attempt to talk to me. At times, he will mumble a little bit. HEENT: His mouth seems, mucous membranes are little dry. His supraclavicular fossas have hard masses present in the medial aspect. VITAL SIGNS: Show a temperature of 98.4, pulse 99, respirations 22, O2 saturation 99% on 2 L, blood pressure 130/60. LUNGS: The left chest is clear. Right chest, there is decreased breath sounds over the right upper lobe and some coarse breath sounds. HEART: Rapid, regular rhythm. GENITOURINARY: Urinary output has been 1700. ASSESSMENT: 1. Metastatic adenocarcinoma of the lung. a. History of wedge resection of the right lower lobe, 2015. b. Complicated by metastatic disease with hard palpable masses in the supraclavicular fossas. c. Has been on immunotherapy. d. PET scan on 03/28/2019 showed new metabolic nodules in the lungs. e. CT scan of the chest on 2011 showed bilateral pulmonary nodules that have increased in size. Left hilar adenopathy, and supra and infraclavicular nodules that are increasing in size. All compatible with progression of disease. f. Marked decline with increased restlessness. g. Has opted for Hospice care. PLAN: The patient's , Jessica has been with him all night and has seen his struggle. I visited with him about his condition and indicated that some of his change is probably all from the progression of his cancer. It is possible that he has brain metastasis, although he has no focal neurologic weakness in the extremities. We will not scan him because this will not alter his care. His condition is terminal. All efforts will be now focused on his comfort. Jessica said he has trouble with reaction to the morphine with hallucinations. We will stop his IV antibiotics. We will stop the hydroxyzine. We will increase the risperidone for the restlessness and use Ativan every 4 hours IV. We will contact Hospice and make arrangements for his transfer home tomorrow. This is what he wants, to go home. Job ID: [id number] MTDD
[2019-05-15] MEDS ORDERED: Sodium Chloride 0.9% 1,000 ML BAG ONE (12:55)
[2019-05-15] MEDS ORDERED: Sodium Chloride Irrig Solution 250 ML BOT ONE (12:55)
[2019-05-15] MEDS: risperiDONE 0.5 MG TAB PER TUBE SCH ×2 (13:49→21:14)
[2019-05-15] MEDS: Lorazepam 2 MG/ML VIAL SLOW IVP PRN (22:24)
[2019-05-16] MEDS: Lorazepam 2 MG/ML VIAL SLOW IVP PRN (03:41)
[2019-05-16] MEDS: risperiDONE 0.5 MG TAB PER TUBE SCH (05:22)
[2019-05-16 07:30] VITALS: TEMP 97.5
[2019-05-16 07:31] VITALS: BP 130/63
[2019-05-16] MEDS: predniSONE 20 MG TAB PER TUBE SCH (08:56)
[2019-05-16] MEDS ORDERED: Acetaminophen 500 MG TAB PO PRN (12:36)
--- NOTE | 2019-05-17 09:35 | DIS ---
DATE OF ADMISSION: 05/09/2019 DATE OF DISCHARGE: 05/16/2019 FINAL DIAGNOSES: 1. Right upper lobe pneumonia. a. Hospitalized at [facility] from 04/19 until 04/25 with aspiration pneumonia. b. Temporary improvement. Suspect patient may have postobstructive pneumonia, completed 7 day course of IV antibiotics with Levaquin and cefepime. 2. Chronic obstructive pulmonary disease with acute exacerbation. 3. Chronic hypoxic respiratory failure. a. Requires continuous supplemental O2. 4. Metastatic adenocarcinoma of the lung. a. History of wedge resection of the right lower lobe 2014. b. Complicated by progressive disease with hard palpable masses in the supraclavicular fossa. c. PET scan on 03/28/2019 showed new metabolic nodules in the lung, CT scan of the chest on 04/20 showed bilateral pulmonary nodules that have increased in size with left hilar adenopathy and supra and clavicular enlarging nodes all compatible with progression of disease. d. Marked decline in his functional capabilities, now end stage with increase restlessness. e. Has opted for hospice care. 5. Severe dysphagia. a. Modified barium swallow on 04/24 showed aspiration with thin liquids and penetration with mechanical soft diet. Speech therapist recommended n.p.o. status. NG tube feeding. 6. Coronary artery disease. a. Single-vessel disease, open heart catheterization 2014, medically managed. 7. Severe generalized weakness. a. Requires total care. b. Requires enteral feedings. c. Any activities result in severe exertional dyspnea. 8. Diabetes type 2. a. Hemoglobin A1c 6.5. 9. Urinary retention. a. A required placement of a Gamble catheter on 04/14/2019 with a 750 residual. SUMMARY: The patient is a 74-year-old -[place] male who has a history of coronary artery disease that is asymptomatic, hypertension, COPD, and diabetes type 2. He has a history of cigarette abuse. He was diagnosed with adenocarcinoma of the lung in 2014 and underwent a right lower lobe wedge resection. He later had evidence of recurrence and has been on immunotherapy with Keytruda. His PET scan on 03/28/2019 showed new metabolic nodules in the lung. His CT scan of the chest on 04/20 showed bilateral pulmonary nodules that have increased in size. There was evidence also particularly of supra and infraclavicular nodules with increase in size and left hilar adenopathy, all compatible with progression of disease. He has severe dysphagia with modified barium swallow study showing aspiration with thin liquids and penetration with mechanical soft diet. He has been on G-tube feedings for some time. Speech therapist recommended continuing this. The patient had been hospitalized at [facility] from 04/19 until 04/25 with an aspiration pneumonia with chronic infiltrate in the right upper lobe. Remainder of the chest is clear. The patient re-presented to the emergency room on 05/09/2019, complaining of increased shortness of breath, increased congestion and was very dyspneic, was hypoxic requiring his supplemental O2 and had expiratory wheeze and rhonchi. His chest x-ray showed the chronic infiltrate and some probably collapse of the right upper lobe. We could not exclude infiltrate in this area. On his exam, he had increased bronchial breath sounds over that right upper lobe and he had a tachycardia. Also, there was hard masses that could be felt in the medial aspect of the right supraclavicular fossa. It was recommended the patient be admitted for treatment of recurrence of pneumonia and exacerbation of his COPD. The patient refused to go back to [facility] and asked that he be cared for here. The patient was admitted here. HOSPITAL COURSE: Included supplemental O2, IV steroids initially and IV antibiotics with Levaquin and cefepime. Over the next 48 hours, he did improve. He looked better. His breathing was better. His pulse dropped. His respiratory rate dropped and his O2 sats remained in the mid 90s on supplemental O2. He was continued on his G-tube feeding. Speech therapist re-evaluated him and recommended continuation of his G-tube feeding and n.p.o. status. After evaluation, Physical Therapy worked with him some, but gradually any activities just would leave him spent due to shortness of breath. He developed inability to urinate, was trying to urinate every 5 minutes. The bladder scan showed a 750 residual. Catheter was placed and he had a 750 residual and this had been left in place. The patient grew increasingly restless and developed increasing congestion and became weaker where all he could tolerate was sitting in a chair. He was given Ativan and tried on hydroxyzine and the increased restlessness was also managed with risperidone. His condition continued to decline. The patient was felt initially that he had responded some to the pneumonia, but then this seemed had he completed a 7 day course of the antibiotics. The patient has metastatic adenocarcinoma of the lung and these recent scan shows progression in spite of his immunotherapy. The patient's decline was all felt to be secondary to progression of his metastatic lung disease. Some of his confusion and restlessness could be even from brain metastasis, but it was opted not to do a CT scan, because it would not alter his management. Discussed with the patient's and let her know that his condition had progressed and she was asking at this point for comfort measures. The patient just asked to go home. 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 The patient had been switched to IV Ativan, which worked very very well for him and he rested and slept with this. This was repeated as often as necessary. By the morning of 05/14, patient was lying in bed with the head elevated. He was tachypneic. He was sleeping and had coarse expiratory breath sounds and a rapid heart rate. His condition had obviously continued to decline. Arrangements were all being made for his discharge home, which he wanted to do, this will be under hospice. DISPOSITION DIET: We will continue G-tube feeding with Glucerna 1.5 kilocalories per mL, 240 mL or one can every 8 hours, water 60 mL flush before and after each feeding. This had been cut down and he admit that because he was having some full sensation and discomfort in the epigastrium, antireflux measures. ACTIVITIES: The patient primarily will be in bed with the head of the bed elevated, maybe up in a chair as tolerated. Gamble catheter should be kept in place for urinary retention, O2 at 2 L by nasal cannula. MEDICATIONS: 1. Ativan 1 mg 1-2 tablets every 4 hours as needed. This may be dissolved in small volume of water and given p.o. 2. Risperidone 0.5 mg per G-tube every 8 hours. 3. Prednisone 5 mg four tablets daily per G-tube x3 days, then 2 tablets daily x3 days and then 1 tablet daily x3 days and then discontinued. 4. DuoNeb by nebulizer every 4 hours as needed. 5. Acetaminophen 500 mg 2 every 4 hours as needed for pain or may be given by suppository. 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 CODE STATUS: DNR. Job ID: [id number] [facility]
--- NOTE | 2019-05-17 09:38 | DIS ---
DATE OF ADMISSION: 05/09/2019 DATE OF DISCHARGE: 05/16/2019 ADDENDUM: This morning preparations were being made for patient to go home under hospice. At his visit this morning, he was minimally responsive and respiratory rate was elevated and there was increased congestion in his chest. He appeared comfortable through the morning while preparations were made for him to go home under hospice. Patient remained unresponsive. His respirations gradually slowed and then ceased a little after 11. His family members were with him. I examined the patient at 11:30 hours and at that time he had no vital signs. His pupils were dilated and fixed. There was no breath sounds nor heart sounds. The patient was pronounced at 11:30 a.m. Cause of metastatic cancer of the lung. No resuscitative efforts were made per his DNR. Job ID: [id number] MTDD
--- NOTE | 2019-05-18 22:51 | PQF ---
James Milan GROVER MD [id number] CLINICAL DOCUMENTATION CLARIFICATION FORM: POST DISCHARGE Addendum to original discharge summary date: ____ Late entry note date: __ DATE:05/18/2019 ATTN: MARLENY CHEEMA MD Please exercise your independent, professional judgment in responding to the clarification form. Clinical indicators are provided on the bottom of this form for your review Please check appropriate box(es): [ ] Sepsis due to: (Pna, UTI, gangrenous gall bladder, etc.) Due to: [ ] Device (please specify) [ ] Implant [ ] Graft [ ] Infusion [ ] SIRS due to non-infectious process (please specify etiology) [ ] with organ dysfunction [ ] without organ dysfunction [ ] Severe sepsis with acute organ dysfunction of: (Examples: respiratory failure, encephalopathy, acute kidney failure, other) [ ] Septic Shock [ ] Localized infection without sepsis [ ] Other diagnosis [ ] Unable to determine In addition, please specify: Present on Admission (POA): [ ] Yes [ ] No [ ] Unable to determine For continuity of documentation, please document condition throughout progress notes and discharge summary. Thank You. CLINICAL INDICATORS - SIGNS / SYMPTOMS / LABS SIRS Scoring:Respiratory rate >20/min, Heart rate >90, Yes Patient did meet at least 2 criteria for STEP B-Documented in ED on 05/08 by Pete Matias MD Pulse-128, [id number] in ED on 05/08 by Pete Matias MD While he meets sepsis criteria, he does not appear to have septic shock- Documented in ED on 05/08 by Pete Matias MD Pneumonia-Documented in ED on 05/08 by Pete Matias MD Sever generalized weakness-Documented in H&P on 05/08 by Marleny Cheema MD Right upper lobe pneumonia-Documented in H&P on 05/08 by Marleny Cheema MD WBC-21.3-Documented in Laboratory RISK FACTORS Right upper lobe pneumonia-Documented in H&P on 05/08 by Marleny Cheema MD TREATMENTS: Cefepime IV 2 g-Documented in ED on 05/08 by Pete Matias MD Continued on the IV Levaquin and cefepime -Documented in H&P on 05/08 by Marleny Cheema MD SAP A R Collections Rep Crystal Reports Winform Viewer (This form is maintained as a part of the permanent medical record) 2014 [employer]. All Rights Reserved [email or web address]
--- NOTE | 2019-05-18 23:14 | PQF ---
James Milan GROVER MD [id number] CLINICAL DOCUMENTATION CLARIFICATION FORM: POST DISCHARGE Addendum to original discharge summary date: ____ Late entry note date: __ Date: 05/18/2019 ATTN:MARLENY CHEEMA MD Please exercise your independent, professional judgment in responding to the clarification form. Clinical indicators are provided on the bottom of this form for your review Please check appropriate box(s): [ ] Protein Calorie Malnutrition: [ ] Mild [ ] Moderate [ ] Severe [ ] Other Malnutrition (please specify) __ [ ] Underweight without malnutrition [ ] Cachexia [ ] Other diagnosis [ ] Unable to determine In addition, please specify: Present on Admission (POA): [ ] Yes [ ] No [ ] Unable to determine CLINICAL INDICATORS - SIGNS / SYMPTOMS / LABS Weight loss -Documented in H&P on 05/08 by Marleny Cheema MD Severe generalized weakness-Documented in H&P on 05/08 by Marleny Cheema MD Severe dysphagia; Modified barium swallow study ,04/24/2019, showed aspiration with thin liquids and penetration with mechanical soft texture diet. recommended n.p.o and continuation of only his G-tube feeding -Documented in H& P on 05/08 by Marleny Cheema MD BMI-19.0-Documented in FNS assessment RISK FACTORS Severe dysphagia-Documented in H&P on 05/08 by Marleny Cheema MD G-tube feeding -Documented in H&P on 05/08 by Marleny Cheema MD TREATMENT: We will continue his G-tube feeding-Documented in H&P on 05/08 by Marleny Cheema MD Pt w/ PEG tube for sole nutrition, TRAUMA COORDINATOR rec strict NPO s/p MBS at previous admission-Documented in FNS assessment on 05/11 Continue TF of 6 cartons of Glucerna 1.5 daily (2 cartons , TID)-Documented in FNS assessment Closely meet estimated nutritional needs upon follow up -Documented in FNS assessment We will continue his G-tube feeding with Glucerna 1.5 kilocalories per ml, 240 Ml or one can every 8 hours , water 60 ml flush before and after each feeding- Documented in discharge summary on 05/15 by Marleny Cheema MD Moderate Malnutrition (in acute illness) Energy Intake: <75% of estimated energy requirement for > 7 days Weight Loss: 1-2%/1 week; 5%/ 1 month; 7.5%/3 months Other: mild body fat loss; mild muscle mass loss; mild fluid accumulation; Severe Malnutrition (in acute illness) Energy Intake: < 50% of estimated energy requirement for > 5 days Weight Loss: >1-2%/1 week; >5%/1 month; >7.5%/3 months Other: moderate body fat loss; moderate muscle mass loss; moderate- severe fluid accumulation; measurably reduced dry transfer man strength Moderate Malnutrition (in chronic illness) Energy Intake: <75% of estimated energy requirement for >1 month Weight Loss: 5%/1 month; 7.5%/3 months; 10%/6 months; 20%/1 year Other: mild body fat loss; mild muscle mass loss; mild fluid accumulation Severe Malnutrition (in chronic illness) Energy Intake: <75% of estimated energy requirement for >1 month Weight Loss: >5%/1 month; >7.5%/3 months; >10%/6 months; >20%/1 year Other: severe body fat loss; severe muscle mass loss; severe fluid accumulation ; measurably reduced dry transfer man strength SAP Property Disposal Manager Crystal Reports Winform Viewer (This form is maintained as a part of the permanent medical record) 2014 [employer]. All Rights Reserved [email or web address] MTDD
--- NOTE | 2019-05-22 22:13 | PQF ---
James Milan GROVER MD [id number] CLINICAL DOCUMENTATION CLARIFICATION FORM: POST DISCHARGE Addendum to original discharge summary date: ____ Late entry note date: __ DATE:05/22/2019 ATTN: MARLENY CHEEMA MD Please exercise your independent, professional judgment in responding to the clarification form. Clinical indicators are provided on the bottom of this form for your review Please check appropriate box(s): [ ] Aspiration Pneumonia [ ] Pneumonia NOS [ ] Other diagnosis [ ] Unable to determine For continuity of documentation, please document condition throughout progress notes and discharge summary. Thank You. CLINICAL INDICATORS - SIGNS / SYMPTOMS / LABS Right upper lobe pneumonia; a.Hospitalized at [facility] from 04/19 until 04/25 with aspiration pneumonia b.Temporary improvement. Suspect patient may have postobstructive pneumonia completed 7 day course of IV antibiotics with levaquin and cefepime - Documented in discharge summary on 05/15 by Marleny Cheema MD Chronic obstructive pulmonary disease with acute exacerbation-Documented in discharge summary on 05/15 by Marleny Cheema MD Chronic respiratory failure-Documented in discharge summary on 05/15 by Marleny Cheema MD Severe dysphagia; a. Modified barium swallow on 04/24 showed aspiration with thin liquids and penetration with mechanical soft diet. Speech therapist recommended n.p.o. Status NG tube feeding- Documented in discharge summary on 05/15 by Marleny Cheema MD The patient re- presented to the ER on 05/08 complaining of increased SOB, Increased congestion and was very dyspneic -Documented in discharge summary on 05/15 by Marleny Cheema MD Chest x ray showed the chronic infiltrate and some probably collapse of the right upper lobe. we could not exclude infiltrate in ythis area--Documented in discharge summary on 05/15 by Marleny Cheema MD Patient be admitted for treatment of recurrence of pneumonia and exacerbation of his COPD-Documented in discharge summary on 05/15 by Marleny Cheema MD RISK FACTORS Severe dysphagia; a. Modified barium swallow on 04/24 showed aspiration with thin liquids and penetration with mechanical soft diet. Speech therapist recommended n.p.o. Status NG tube feeding- Documented in discharge summary on 05/15 by Marleny Cheema MD a.Hospitalized at [facility] from 04/19 until 04/25 with aspiration pneumonia- Documented in discharge summary on 05/15 by Marleny Cheema MD TREATMENTS: IV steroids initially and IV antibiotics with Levaquin and cefepime-Documented in discharge summary on 05/15 by Marleny Cheema MD He was continued on his G-tube feeding-Documented in discharge summary on 05/15 by Marleny Cheema MD Speech therapist re-evaluated him and recommended continuation of his G-tube feeding --Documented in discharge summary on 05/15 by Marleny Cheema MD (This form is maintained as a part of the permanent medical record) 2014 [employer]. All Rights Reserved [email or web address]
== END 2019-05-16 12:45 | disposition expired | DRG 190 ==
LOC: MADERS 04:23 → UNDOADMIN 07:20 → MADMS 07:20 → UNDOADMIN 05-12 18:00 → MADMS 05-12 18:00 → UNDOADMIN 05-13 04:05 → MADMS 05-13 04:05
PROVIDERS: ADMIT Family Medicine; ATTEND Family Medicine
DX: J44.1 Chronic obstructive pulmonary disease with (acute) exacerbation (principal); J18.9 Pneumonia, unspecified organism; J96.11 Chronic respiratory failure with hypoxia; C34.92 Malignant neoplasm of unspecified part of left bronchus or lung; C85.98 Non-Hodgkin lymphoma, unspecified, lymph nodes of multiple sites; Z68.1 Body mass index [BMI] 19.9 or less, adult; C79.31 Secondary malignant neoplasm of brain; J44.0 Chronic obstructive pulmonary disease with (acute) lower respiratory infection; Z51.5 Encounter for palliative care; Z66 Do not resuscitate; R13.10 Dysphagia, unspecified; I25.10 Atherosclerotic heart disease of native coronary artery without angina pectoris; I10 Essential (primary) hypertension; E78.5 Hyperlipidemia, unspecified; N40.0 Benign prostatic hyperplasia without lower urinary tract symptoms; K21.9 Gastro-esophageal reflux disease without esophagitis; E11.39 Type 2 diabetes mellitus with other diabetic ophthalmic complication; R63.4 Abnormal weight loss; K64.9 Unspecified hemorrhoids; Z87.891 Personal history of nicotine dependence; Z88.5 Allergy status to narcotic agent; Z93.3 Colostomy status; Z99.81 Dependence on supplemental oxygen; R45.1 Restlessness and agitation; R22.9 Localized swelling, mass and lump, unspecified; Z79.899 Other long term (current) drug therapy; Z93.1 Gastrostomy status
CPT/HCPCS: 36416; 71045; 80048; 80053; 81001; 81003; 81015; 83036; 83605; 85025; 87040; 87086; 96361; 96365; 96367; 36415-59; J0692; J1650; J1956; J2060; J2920; J3490; J7050; J7512; J7620